=== PATIENT | female | born 1940 | race Caucasian/White ===

== ENCOUNTER 2017-09-15 10:07 | Outpatient (CLI) | payer OTHER, MEDICARE ==
[2017-09-15] MEDS ORDERED: ISOVUE-370 76%-LOCM 1 ML ONE (16:11)
== END 2017-09-15 10:08 | disposition home or self-care (01) ==
LOC: BICCT 10:07
PROVIDERS: ATTEND Family Medicine
DX: I48.1 Persistent atrial fibrillation (principal); J98.4 Other disorders of lung; J47.9 Bronchiectasis, uncomplicated; I70.90 Unspecified atherosclerosis
CPT/HCPCS: 71275

== ENCOUNTER 2017-09-15 11:47 | Outpatient (CLI) | payer OTHER, MEDICARE | END 2017-09-15 11:48 | disposition home or self-care (01) | LOC: BICMAMMO 11:47 | PROVIDERS: ATTEND Internal Medicine | DX: Z12.31 Encounter for screening mammogram for malignant neoplasm of breast (principal) | CPT/HCPCS: 77063; 77067 ==

== ENCOUNTER 2018-07-26 15:59 | Outpatient (CLI) | payer OTHER, MEDICARE ==
--- NOTE | 2018-07-26 17:45 | RAD ---
PA AND LATERAL CHEST: INDICATIONS: Chest and back pain after heart procedure. COMPARISON: CTA thorax dated 09/15/2017. FINDINGS: There is a metallic device overlying the upper left heart border, possibly related to an occlusion de vice from the atrial appendage. Heart size is mildly enlarged. The pulmonary vasculature appears wi thin normal limits. There are small bilateral pleural effusions and bibasilar atelectasis. No pneum othorax is demonstrated. No acute osseous abnormality is noted. There is an IVC filter present with in the upper abdomen. Cholecystectomy clips are seen within the right upper quadrant. IMPRESSION: 1. Suspected metallic occlusion device seen within the region of the left atrial appendage. 2. Mild cardiomegaly. 3. Small bilateral pleural effusion and bibasilar atelectasis. POS: [facility]
== END 2018-07-26 16:00 | disposition home or self-care (01) ==
LOC: BICRAD 15:59
PROVIDERS: ATTEND Internal Medicine
DX: R07.9 Chest pain, unspecified (principal); M54.5 Low back pain; I51.7 Cardiomegaly; J98.11 Atelectasis; J90 Pleural effusion, not elsewhere classified
CPT/HCPCS: 71046

== ENCOUNTER 2018-07-29 15:59 | Emergency (ER) | payer OTHER, MEDICARE ==
[~2018-07-29 15:59] MED LIST: ISOVUE-370 76%-LOCM 1 ML ONE
[2018-07-29 16:40] LABS: #Eosinphils 0.1 thou/uL (0.0-0.7); #Lymphocytes 1.7 thou/uL (1.20-3.40); #Monocytes 1.2 thou/uL (0.11-0.59); %Basophils 0.4 % (0.0-1.0); %Eosinophils 1.4 % (0.0-10.0); %Lymphocytes 21.3 % (21.0-51.0); %Monocytes 14.8 % (0.0-10.0); %Neutrophils 62.1 % (42.0-75.0); Hemoglobin 11.5 g/dL (12.0-16.0); Mean Corpuscular HGB CONC 31.8 g/dL (32.0-36.0); Mean Corpuscular Hemoglobin 30.4 pg (27.0-31.0); Mean Corpuscular Volume 95.7 fL (78.0-98.0); Mean Platelet Volume 8.4 fL (7.4-10.4); Platelet Count 256 thou/uL (130-400); RBC Distribution Width 11.4 % (11.5-14.5); Red Blood Cell (RBC) Count 3.77 mill/uL (4.20-5.40)
[2018-07-29 17:04] LABS: ALT (SGPT) 73 U/L (8-55); AST (SGOT) 61 U/L (5-34); Albumin 3.6 g/dL (3.4-4.8); Alkaline Phosphatase 330 U/L (40-150); Anion Gap 13 mmol/L (10-20); BUN (Urea Nitrogen) 20 mg/dL (9.8-20.1); Bilirubin, Total 0.2 mg/dL (0.2-1.2); Calc. Creatinine Clearance 0 mL/min (70-130); Calcium 9.2 mg/dL (7.8-10.44); Carbon Dioxide 26 mmol/L (23-31); Chloride 102 mmol/L (98-107); Estimated GFR-MDRD 65; Globulin 3.6 g/dL (2.4-3.5); Glucose 111 mg/dL (83-110); Potassium 3.8 mmol/L (3.5-5.1); Protein, Total 7.2 g/dL (6.0-8.3); Sodium 137 mmol/L (136-145)
--- NOTE | 2018-07-29 18:18 | RAD ---
TWO VIEW CHEST SERIES: 07/19/18 COMPARISON: 07/26/18 INDICATION: Emergency exam. Pain. FINDINGS: There is hyperinflation with bibasilar interstitial opacities that are similar appearing which indica tal scar. Mild pleural fluid versus pleural thickening present. There is enlargement of the cardiac s ilhouette and a stable radiopaque device indicating an atrial appendage occlusion device is seen. The re is ectasia and calcification of the thoracic aorta, stable. IMPRESSION: COPD. No significant interval change from 07/26/18. POS: [facility]
[2018-07-29] MEDS ORDERED: Morphine 4 MG/ML VIAL ONE (18:25)
[2018-07-29] MEDS ORDERED: Ondansetron PF 4 MG/2 ML Vial ONE (18:30)
[2018-07-29] MEDS ORDERED: Labetalol HCl 200 MG in Sodium Chloride 0.9% 250 ML 160 ML IVPB SCH (19:15)
[2018-07-29 19:28] LABS: INR-International Normal Ratio 1.2; Prothrombin Time 15.6 SEC (12.0-14.7)
[2018-07-29 19:29] LABS: PTT 44.7 SEC (22.9-36.1)
--- NOTE | 2018-07-29 19:41 | CT ---
CTA CHEST WITH CONTRAST: 07/29/18 Multiple axial tomograms obtained through the chest following angio protocol with multiplanar reconst ructions and 3D postprocessing. INDICATIONS: Chest pain and back pain. Recent atrial appendage occlusion procedure six days ago. Comparison is made with CTA chest 09/15/17. FINDINGS: Pulmonary arteries show adequate opacification. No evidence of pulmonary embolus. Review of the thoracic aorta reveals a thoracic aortic dissection involving the descending thoracic a bev. This is new when compared to prior CTA chest. False lumen extends throughout the thoracic aorta into the upper abdominal aorta. The true lumen shows normal opacification measuring approximately 1. 5 cm width x 2.4 cm AP dimension. False lumen has a similar size. There are small bilateral pleural effusions. The left lung base shows some parenchymal opacity which was similar to 2018 which would indicate chronic lung parenchymal changes. There is bronchiectasis in the left lung base which was also described in 2018. IMPRESSION: 1. 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 2. There is a filter device seen in the left atrial appendage consistent with the history. 3. Small bilateral effusions. 4. Dense opacification of the left lung base with bronchiectasis which has a similar appearance to the 2018 exam indicating chronic change. Findings were relayed to the emergency physician at the time of dictation. POS: [facility]
[2018-07-29] MEDS ORDERED: Fentanyl 100 MCG/2 ML VIAL ONE (20:19)
== END 2018-07-29 20:27 | disposition short-term general hospital (02) ==
LOC: ERS 15:59
DX: I71.01 Dissection of thoracic aorta (principal); I10 Essential (primary) hypertension; I48.91 Unspecified atrial fibrillation; Z86.718 Personal history of other venous thrombosis and embolism; E11.9 Type 2 diabetes mellitus without complications; Z79.82 Long term (current) use of aspirin; Z79.899 Other long term (current) drug therapy
CPT/HCPCS: 36415; 71046; 71275; 80053; 84484; 85025; 85379; 85610; 85730; 93005; 96365; 96375; 96376; J2270; J2405; J3010; J3490; J7050; Q9966

== ENCOUNTER 2019-01-18 15:49 | Outpatient (CLI) | payer OTHER, MEDICARE ==
--- NOTE | 2019-01-18 16:21 | RAD ---
EXAM: Chest Two Views 01/18/2019 4:17 PM HISTORY: Chest pain with left rib pain for the last 6 months; history of surgery in December and July COMPARISON: July 29, 2018 FINDINGS: Heart: The heart size is normal. The atrial appendage ablation device is unchanged. There is been int erval placement of a long segment endograft stent involving the aortic arch and descending thoracic aorta. IVC filter is seen within the upper abdomen. Pulmonary vessels: Normal. Costophrenic angles: Clear. Lungs: There is subsegmental volume loss within the left lower lobe. Pneumothorax: None. Osseous structures:Intact. Additional findings: None. IMPRESSION: No significant acute intrathoracic disease. Interval postsurgical change of the aorta. Subsegmental v olume loss within the left lower lobe.
--- NOTE | 2019-01-18 16:26 | RAD ---
LEFT RIB SERIES INDICATION: Left sided rib pain. COMPARISON: None. FINDINGS: The visualized left lung demonstrates subsegmental volume loss in the left lower lobe. No left-sided pneumothorax is demonstrated. Left Ribs: No displaced left-sided rib fracture is demonstrated. IMPRESSION: No displaced left-sided rib fracture
== END 2019-01-18 15:50 | disposition home or self-care (01) ==
LOC: BICRAD 15:49
PROVIDERS: ATTEND Internal Medicine
DX: R07.81 Pleurodynia (principal); R07.9 Chest pain, unspecified; Z98.890 Other specified postprocedural states; M54.5 Low back pain; I10 Essential (primary) hypertension; D64.9 Anemia, unspecified; Z79.899 Other long term (current) drug therapy
CPT/HCPCS: 36415; 71046; 80053; 85025

== ENCOUNTER 2019-02-15 13:47 | Outpatient (CLI) | payer OTHER, MEDICARE ==
--- NOTE | 2019-02-15 15:31 | CT ---
CT chest without and with IV contrast HISTORY: Chest pain. Prior aortic stent placement. COMPARISON: 07/29/2018. FINDINGS: Atelectasis at the left posterolateral lung base has improved since the previous exam. Pleu ral fluid has resolved. Calcified granulomata are consistent with healed granulomatous disease. Iliac stent now in place from the arch to the lower thoracic aorta with interval resolution of the la rge dissection demonstrated on the prior study. No evidence residual dissection. Minimal pericardial fluid. Bovine origin of the great vessels at the aortic arch. Prominent arterial calcific ations. Within the partially visualized upper abdomen, gallbladder is surgically absent with associated distention of the biliary system. IVC filter partially visualized. Tiny stone within at th e superior pole of the left kidney. IMPRESSION: Thoracic aortic stent now in place with interval resolution of the aortic dissection. No evidence of complication. Improvement of the subsegmental atelectasis left lower lobe. Atherosclerosis. Tiny left renal calculus.
== END 2019-02-15 13:48 | disposition home or self-care (01) ==
LOC: BICCT 13:47
PROVIDERS: ATTEND Internal Medicine
DX: R07.9 Chest pain, unspecified (principal); M54.9 Dorsalgia, unspecified; J98.11 Atelectasis; I70.90 Unspecified atherosclerosis; N20.0 Calculus of kidney
CPT/HCPCS: 71270

== ENCOUNTER 2019-07-26 10:26 | Outpatient (CLI) | payer MEDICARE ==
--- NOTE | 2019-07-26 13:09 | MRI ---
MRI CERVICAL SPINE WITHOUT CONTRAST: INDICATION: Cervical radiculopathy. Neck pain. FINDINGS: Cervical vertebrae maintain normal height and alignment. The cervical disk spaces are preserved. C2-3: No significant disk abnormality. C3-4: Mild disk bulge and spondylosis efface the anterior subarachnoid space. No significant cord i mpingement. Foramen appear patent. C4-5: Mild disk bulge and spondylosis efface the anterior subarachnoid space. No cord impingement. Foramen appear patent. C5-6: Mild disk bulge and spondylosis efface the anterior subarachnoid space and abut the anterior c ord. No significant foraminal stenosis apparent. C6-7: Mild disk bulge and spondylosis efface the anterior subarachnoid space. No significant cord i mpingement. No foraminal stenosis. Cord signal appears normally maintained. IMPRESSION: Mild disk bulge and spondylosis at C3-4, C4-5, and C5-6 levels as described. POS: [facility]
== END 2019-07-26 10:27 | disposition home or self-care (01) ==
LOC: BICMRI 10:26
PROVIDERS: ATTEND Anesthesiology Pain Medicine
DX: M47.22 Other spondylosis with radiculopathy, cervical region (principal); M50.11 Cervical disc disorder with radiculopathy, high cervical region
CPT/HCPCS: 72141

== ENCOUNTER 2020-05-16 09:54 | Outpatient (CLI) | payer MEDICARE ==
[~2020-05-16 09:54] MED LIST changes: -ISOVUE-370 76%-LOCM 1 ML ONE; +Iopamidol-370 76% 500 ML 1 ML ONE
--- NOTE | 2020-05-16 11:54 | CT ---
CT ANGIOGRAM THORAX WITH IV CONTRAST AND 3-D RECONSTRUCTIONS CLINICAL INDICATION: Atrial fibrillation and shortness of breath. Patient has history of placement of left atrial occlusio n device. COMPARISON: 02/15/2019 FINDINGS: Pulmonary arteries: No filling defects are seen in the pulmonary arteries to suggest a pulmonary embo rafy. Aorta and heart: Thoracic aortic stent graft remains in place. There is opacification of the great ve ssels, and the lumen of the stent graft is patent. The thoracic and visualized upper abdominal aorta are normal in caliber. Again noted is a left atrial occlusion device. There is persistent contrast seen within the left atri al appendage. Vascular calcifications are seen in the visualized upper abdominal aorta. Lungs: Wedge-shaped area of consolidation in the left lower lobe is again seen. The consolidation has improved compared to study on 07/29/2018 but is stable compared to study on 02/15/2019. No pleural fluid is seen. There is mild bronchiectasis in the region of the focal area of consolidation. There a re filling defects seen within the left lower lobe bronchi on the current exam which could be related to mucous plugging or debris. The lungs are otherwise clear. Mediastinum: No enlarged lymph nodes are seen by CT size criteria. The heart is mildly enlarged. Thyroid gland: There are subcentimeter nodules seen in left lobe of thyroid gland which are stable fr om prior studies. Osseous structures: Mild degenerative changes are seen in the spine. No suspicious lytic or sclerotic osseous lesions are identified. Chest wall: No abnormality visualized. Upper abdomen: Postcholecystectomy changes are present. Postoperative changes of the stomach are agai n noted. IMPRESSION: 1. Left atrial occlusion device is present. However, there is incomplete occlusion of the left atrial appendage with persistent enhancement present in the left atrial appendage. 2. Thoracic aortic stent graft is again present involving the descending thoracic aorta extending fro m the level of the origin of the left subclavian artery to the region of the aortic hiatus. Thoracic aorta is normal in caliber. 3. Persistent wedge-shaped area of consolidation left lower lobe. This is likely related to chronic a liberty of atelectasis as there is generalized volume loss of the left lower lobe. Filling defects are seen within the left lower lobe bronchi which could be related to debris or mucous plugging. 4. Mild cardiomegaly. 5. Hypodense nodules left lobe of thyroid gland also seen on prior exam. Thyroid ultrasound may be he lpful for further evaluation if this has not been performed. 6. Postcholecystectomy changes as well as postoperative changes of the stomach.
== END 2020-05-16 09:55 | disposition home or self-care (01) ==
LOC: BICCT 09:54
PROVIDERS: ATTEND Internal Medicine Cardiovascular Disease
DX: I48.91 Unspecified atrial fibrillation (principal); R06.02 Shortness of breath; I51.7 Cardiomegaly; E04.2 Nontoxic multinodular goiter; J18.1 Lobar pneumonia, unspecified organism; Z90.49 Acquired absence of other specified parts of digestive tract; Z95.828 Presence of other vascular implants and grafts
CPT/HCPCS: 71275; 82565; Q9967

== ENCOUNTER 2020-08-20 13:23 | Observation (INO) | payer MEDICARE ==
[2020-08-20] MEDS ORDERED: Iopamidol-370 76% 500 ML 1 ML ONE (14:14)
[2020-08-20 14:23] LABS: #Eosinphils 0.1 thou/uL (0.0-0.7); #Lymphocytes 1.4 thou/uL (1.20-3.40); #Monocytes 0.7 thou/uL (0.11-0.59); #Neutrophils 7.1 thou/uL (1.40-6.50); %Basophils 0.5 % (0.0-1.0); %Eosinophils 1.1 % (0.0-10.0); %Lymphocytes 14.9 % (21.0-51.0); %Monocytes 7.4 % (0.0-10.0); %Neutrophils 76.1 % (42.0-75.0); Hemoglobin 11.2 g/dL (12.0-16.0); Mean Corpuscular HGB CONC 31.7 g/dL (32.0-36.0); Mean Corpuscular Hemoglobin 28.5 pg (27.0-31.0); Mean Corpuscular Volume 89.8 fL (78.0-98.0); Mean Platelet Volume 8.5 fL (7.4-10.4); Platelet Count 267 thou/uL (130-400); RBC Distribution Width 13.4 % (11.5-14.5); Red Blood Cell (RBC) Count 3.92 mill/uL (4.20-5.40); White Blood Cell (WBC) Count 9.3 thou/uL (4.8-10.8)
[2020-08-20 14:37] LABS: ALT (SGPT) 55 U/L (8-55); AST (SGOT) 165 U/L (5-34); Albumin 3.7 g/dL (3.4-4.8); Alkaline Phosphatase 208 U/L (40-110); Anion Gap 14 mmol/L (10-20); BUN (Urea Nitrogen) 32 mg/dL (9.8-20.1); Bilirubin, Total 0.3 mg/dL (0.2-1.2); Calc. Creatinine Clearance 0 mL/min (70-130); Carbon Dioxide 24 mmol/L (23-31); Chloride 104 mmol/L (98-107); Globulin 3.3 g/dL (2.4-3.5); Glucose 120 mg/dL (83-110); Lipase 27 U/L (8-78); Potassium 4.6 mmol/L (3.5-5.1); Sodium 137 mmol/L (136-145)
[2020-08-20] MEDS ORDERED: Nitroglycerin 0.4 MG TAB (25 Tab Bottle) SL PRN (17:47)
[2020-08-20] MEDS ORDERED: Dextrose 50% Abboject 50 ML SYRINGE SLOW IVP PRN (17:47)
[2020-08-20] MEDS ORDERED: Acetaminophen 325 MG TAB PO PRN (17:47)
[2020-08-20] MEDS ORDERED: Dextrose 5% in Water 1,000 ML IV PRN (17:47)
[2020-08-20] MEDS ORDERED: HumaLOG 300 UNITS/3 ML VIAL SC PRN ×2 (18:01)
[2020-08-20 18:29] LABS: Troponin I Less than 0.010 ng/mL (< 0.028)
[2020-08-20 20:48] LABS: Troponin I Less than 0.010 ng/mL (< 0.028)
[2020-08-21] MEDS ORDERED: Mag-Al Plus 1200 MG/1200 MG/120 MG/30 ML UDCUP PO SCH (01:00)
[2020-08-21] MEDS ORDERED: Acetaminophen 500 MG TAB ONE (01:02)
[2020-08-21] MEDS: hydrALAZINE 20 MG/ML VIAL SLOW IVP PRN ×2 (01:28→18:51)
[2020-08-21] MEDS ORDERED: hydrALAZINE 20 MG/ML VIAL ONE (01:30)
[2020-08-21] MEDS ORDERED: Nitroglycerin 0.4 MG TAB 1 EACH ONE (02:58)
[2020-08-21 03:51] LABS: Troponin I Less than 0.010 ng/mL (< 0.028)
[2020-08-21 04:20] LABS: SARS-CoV-2 PCR by NAA Not Detected (NotDetected)
[2020-08-21 06:37] LABS: #Basophils 0.1 thou/uL (0.0-0.2); #Lymphocytes 1.3 thou/uL (1.20-3.40); #Monocytes 0.5 thou/uL (0.11-0.59); #Neutrophils 6.1 thou/uL (1.40-6.50); %Basophils 0.7 % (0.0-1.0); %Eosinophils 0.4 % (0.0-10.0); %Lymphocytes 15.9 % (21.0-51.0); %Monocytes 5.9 % (0.0-10.0); %Neutrophils 77.2 % (42.0-75.0); Mean Corpuscular HGB CONC 30.8 g/dL (32.0-36.0); Mean Corpuscular Hemoglobin 27.9 pg (27.0-31.0); Mean Corpuscular Volume 90.6 fL (78.0-98.0); Mean Platelet Volume 8.2 fL (7.4-10.4); Platelet Count 261 thou/uL (130-400); RBC Distribution Width 13.5 % (11.5-14.5); Red Blood Cell (RBC) Count 3.94 mill/uL (4.20-5.40)
[2020-08-21 06:53] LABS: Anion Gap 17 mmol/L (10-20); BUN (Urea Nitrogen) 23 mg/dL (9.8-20.1); Calc. Creatinine Clearance 0 mL/min (70-130); Calcium 8.5 mg/dL (7.8-10.44); Carbon Dioxide 21 mmol/L (23-31); Chloride 103 mmol/L (98-107); Glucose 138 mg/dL (83-110); Potassium 4.1 mmol/L (3.5-5.1); Sodium 137 mmol/L (136-145)
[2020-08-21] MEDS ORDERED: FLU VACC QS2020-21(65YR UP)/PF 240 MCG/0.7 ML SYRINGE IM ONE (08:45)
[2020-08-21] MEDS ORDERED: traMADol HCl 50 MG TAB PO PRN (11:22)
[2020-08-21] MEDS ORDERED: Flecainide 50 MG TAB PO SCH (12:45)
[2020-08-21] MEDS ORDERED: Pantoprazole 40 MG VIAL IVP SCH (12:45)
[2020-08-21] MEDS ORDERED: NIFEdipine XL 30 MG TAB PO SCH (12:45)
[2020-08-21] MEDS ORDERED: Aspirin 81 mg Enteric Coated Tablet PO SCH (12:45)
[2020-08-21] MEDS: Mag-Al 1200 mg/1200 mg/30 ML UDCUP PO PRN ×2 (13:34→21:48)
[2020-08-21] MEDS ORDERED: ADENOSINE 60 MG/20 ML VIAL ONE (14:01)
[2020-08-21 17:27] VITALS: BMI 27.1
[2020-08-21] MEDS ORDERED: DORZOLAMIDE OP SCH (21:00)
[2020-08-21] MEDS ORDERED: Latanoprost 0.005% Ophth Soln 2.5 ml Bottle EA EYE SCH (21:00)
[2020-08-21] MEDS ORDERED: [UNRECOGNIZED DRUG - OTHER] OP SCH (21:00)
[2020-08-21] MEDS ORDERED: Rosuvastatin 10 MG TAB PO SCH (21:00)
[2020-08-21] MEDS ORDERED: TIMOLOL OP SCH (21:00)
[2020-08-21] MEDS: Flecainide 50 MG TAB PO SCH (21:39)
[2020-08-21] MEDS: DorzolamidE/Timolol 2%/0.5% Ophth Soln 10 ml Bottle EA EYE SCH (21:44)
[2020-08-22 06:17] LABS: ALT (SGPT) 50 U/L (8-55); AST (SGOT) 39 U/L (5-34); Albumin 3.4 g/dL (3.4-4.8); Alkaline Phosphatase 178 U/L (40-110); Anion Gap 11 mmol/L (10-20); BUN (Urea Nitrogen) 16 mg/dL (9.8-20.1); Bilirubin, Total 0.3 mg/dL (0.2-1.2); Calc. Creatinine Clearance 47 mL/min (70-130); Calcium 8.4 mg/dL (7.8-10.44); Carbon Dioxide 27 mmol/L (23-31); Chloride 103 mmol/L (98-107); Globulin 3.3 g/dL (2.4-3.5); Glucose 117 mg/dL (83-110); Iron 30 ug/dL (50-170); Iron Binding Capacity, Total 369 mcg/dL (265-497); Potassium 3.9 mmol/L (3.5-5.1); Protein, Total 6.7 g/dL (5.8-8.1); Sodium 137 mmol/L (136-145)
[2020-08-22 06:34] LABS: Ferritin 21.37 ng/mL (10-291)
[2020-08-22 06:48] LABS: HBSAg Index 0.21 S/CO (0-0.99); Hep A IgM AB Non-Reactive (NonReactive); Hep B Surf Ag Non-Reactive S/CO (NonReactive); Hep C IgG Ab Non-Reactive (NonReactive); Hep C Index 0.05 S/CO (0-0.79); Hepatitis B Core IgM Abs Non-Reactive (NonReactive)
[2020-08-22] MEDS ORDERED: Aspirin 81 mg Enteric Coated Tablet PO SCH (09:00)
[2020-08-22] MEDS ORDERED: Pantoprazole 40 MG VIAL IVP SCH (09:00)
[2020-08-22] MEDS ORDERED: NIFEdipine XL 30 MG TAB PO SCH (09:00)
[2020-08-22] MEDS: Flecainide 50 MG TAB PO SCH (09:09)
[2020-08-22] MEDS: DorzolamidE/Timolol 2%/0.5% Ophth Soln 10 ml Bottle EA EYE SCH (09:11)
[2020-08-22] MEDS ORDERED: PROPOFOL 200 MG/20 ML VIAL ONE (11:16)
[2020-08-22] MEDS ORDERED: Lidocaine 1% PF 5 ML VIAL ONE (11:16)
[2020-08-22] MEDS ORDERED: Ondansetron HCl/PF 4 MG/2 ML Vial IVP PRN (11:46)
[2020-08-22 17:10] VITALS: BP 129/60; TEMP 98.2
== END 2020-08-22 19:03 | disposition home or self-care (01) ==
LOC: ERS 13:23 → ERHOLD 16:13 → 2SW 08-21 12:18
PROVIDERS: ADMIT Internal Medicine; ATTEND Internal Medicine
PROC: 0DJ08ZZ Inspection of Upper Intestinal Tract, Via Natural or Artificial Opening Endoscopic (ICD-10-PCS; principal; 2020-08-22)
DX: K25.9 Gastric ulcer, unspecified as acute or chronic, without hemorrhage or perforation (principal); E78.5 Hyperlipidemia, unspecified; I48.91 Unspecified atrial fibrillation; I12.9 Hypertensive chronic kidney disease with stage 1 through stage 4 chronic kidney disease, or unspecified chronic kidney disease; E11.22 Type 2 diabetes mellitus with diabetic chronic kidney disease; N18.30 Chronic kidney disease, stage 3 unspecified; R94.5 Abnormal results of liver function studies; J98.11 Atelectasis; Z86.73 Personal history of transient ischemic attack (TIA), and cerebral infarction without residual deficits; Z79.82 Long term (current) use of aspirin; Z79.899 Other long term (current) drug therapy; Z95.5 Presence of coronary angioplasty implant and graft; Z95.818 Presence of other cardiac implants and grafts; Z98.84 Bariatric surgery status; Z20.822 Contact with and (suspected) exposure to COVID-19
CPT/HCPCS: 43235; 71045; 71275; 74174; 76705; 78452; 80048; 80053 ×2; 80074; 82728; 82962 ×2; 83540; 83550; 83690; 84484 ×3; 85025 ×2; 93005 ×2; 93017; 94760; 99285; A9500; U0003; U0005; 36415; 36416; 87635; 96374; 96375; 96376; C9113; G0378; J0153; J0360; J2704; Q9967

== ENCOUNTER 2021-05-10 13:46 | Emergency (ER) | payer MEDICARE ==
[2021-05-10 14:32] LABS: #Eosinphils 0.1 thou/uL (0.0-0.7); #Lymphocytes 1.4 thou/uL (1.20-3.40); #Neutrophils 5.2 thou/uL (1.40-6.50); %Basophils 0.5 % (0.0-1.0); %Eosinophils 1.6 % (0.0-10.0); %Monocytes 12.4 % (0.0-10.0); %Neutrophils 67.5 % (42.0-75.0); Hemoglobin 7.9 g/dL (12.0-16.0); Mean Corpuscular HGB CONC 30.4 g/dL (32.0-36.0); Mean Corpuscular Hemoglobin 22.2 pg (27.0-31.0); Mean Corpuscular Volume 73.1 fL (78.0-98.0); Mean Platelet Volume 8.6 fL (7.4-10.4); Platelet Count 342 thou/uL (130-400); RBC Distribution Width 17.7 % (11.5-14.5); Red Blood Cell (RBC) Count 3.55 mill/uL (4.20-5.40); White Blood Cell (WBC) Count 7.7 thou/uL (4.8-10.8)
[2021-05-10 14:49] LABS: ALT (SGPT) 22 U/L (8-55); AST (SGOT) 17 U/L (5-34); Albumin 3.7 g/dL (3.4-4.8); Alkaline Phosphatase 127 U/L (40-110); Anion Gap 14 mmol/L (10-20); BUN (Urea Nitrogen) 21 mg/dL (9.8-20.1); Bilirubin, Total 0.4 mg/dL (0.2-1.2); Calc. Creatinine Clearance 0 mL/min (70-130); Calcium 8.9 mg/dL (7.8-10.44); Carbon Dioxide 23 mmol/L (23-31); Chloride 106 mmol/L (98-107); Globulin 3.8 g/dL (2.4-3.5); Glucose 155 mg/dL (83-110); Potassium 3.2 mmol/L (3.5-5.1); Protein, Total 7.5 g/dL (5.8-8.1); Sodium 140 mmol/L (136-145)
[2021-05-10 17:58] LABS: Bilirubin Negative (Negative); Blood, Urine Negative (Negative); Clarity Clear (Clear); Glucose, Urine (Dipstick) Normal (Negative); Ketone, Urine Negative (Negative); Leukocyte 75 Leu/uL (Negative); Nitrite Negative (Negative); Protein, Urine (Dipstick) 30 mg/dL (Neg-Trace); RBC/HPF 0-3 HPF (0-3); Specific Gravity, Urine 1.023 (1.002-1.036); Squamous Epithelial 0-3 HPF (0-3); Urobilinogen Normal mg/dL (Less than 2); pH, Urine 5.5 (5.0-9.0)
[2021-05-10 18:02] LABS: Bacteria/HPF 1+ HPF (None Seen)
[2021-05-10] MEDS ORDERED: Potassium Chloride 20 MEQ TAB ONE (18:59)
== END 2021-05-10 22:49 | disposition home or self-care (01) ==
LOC: ERS 13:46
DX: D64.9 Anemia, unspecified (principal); E87.6 Hypokalemia; N39.0 Urinary tract infection, site not specified; I48.91 Unspecified atrial fibrillation; I10 Essential (primary) hypertension; E11.9 Type 2 diabetes mellitus without complications; Z86.73 Personal history of transient ischemic attack (TIA), and cerebral infarction without residual deficits; Z79.899 Other long term (current) drug therapy
CPT/HCPCS: 36430; 80053; 84484; 85025; 86850; 86900; 86901; 86920; 87086; 93005; 99285; P9016; 36415; 81003; 81015; 82274

== ENCOUNTER 2022-01-21 10:34 | Outpatient (CLI) | payer MEDICARE | END 2022-01-21 10:35 | disposition home or self-care (01) | LOC: BICULT 10:34 | PROVIDERS: ATTEND Internal Medicine | DX: R09.89 Other specified symptoms and signs involving the circulatory and respiratory systems (principal) | CPT/HCPCS: 93880 ==

== ENCOUNTER 2022-03-31 07:47 | Outpatient (CLI) | payer MEDICARE ==
[2022-03-31] MEDS ORDERED: Iopamidol-370 76% 500 ML 1 ML ONE (14:12)
== END 2022-03-31 07:48 | disposition home or self-care (01) ==
LOC: BICCT 07:47
PROVIDERS: ATTEND Internal Medicine
DX: K63.89 Other specified diseases of intestine (principal); K76.9 Liver disease, unspecified
CPT/HCPCS: 74177; Q9967

== ENCOUNTER 2022-04-22 08:45 | Outpatient (CLI) | payer MEDICARE | END 2022-04-22 08:46 | disposition home or self-care (01) | LOC: PET 08:45 | PROVIDERS: ATTEND Internal Medicine Hematology & Oncology | DX: C18.2 Malignant neoplasm of ascending colon (principal); R91.1 Solitary pulmonary nodule | CPT/HCPCS: 78815; A9552 ==

== ENCOUNTER 2022-05-05 07:58 | Day surgery (SDC) | payer MEDICARE ==
[~2022-05-05 07:58] MED LIST changes: +FLU VACC QS2022-23(65YR UP)/PF 240 MCG/0.7 ML SYRINGE IM ONE; -Iopamidol-370 76% 500 ML 1 ML ONE
[2022-05-05 08:08] LABS: #Eosinphils 0.1 thou/uL (0.0-0.7); #Lymphocytes 1.5 thou/uL (1.20-3.40); #Monocytes 0.5 thou/uL (0.11-0.59); %Basophils 0.7 % (0.0-1.0); %Eosinophils 1.4 % (0.0-10.0); %Lymphocytes 20.4 % (21.0-51.0); %Monocytes 7.4 % (0.0-10.0); %Neutrophils 70.1 % (42.0-75.0); Hemoglobin 13.4 g/dL (12.0-16.0); Mean Corpuscular HGB CONC 32.6 g/dL (32.0-36.0); Mean Corpuscular Hemoglobin 32.3 pg (27.0-31.0); Mean Corpuscular Volume 99.2 fl (78.0-98.0); Mean Platelet Volume 8.5 fL (7.4-10.4); Platelet Count 210 10x3/uL (130-400); RBC Distribution Width 13.6 % (11.5-14.5); Red Blood Cell (RBC) Count 4.14 mill/uL (4.20-5.40); White Blood Cell (WBC) Count 7.1 10x3/uL (4.8-10.8)
[2022-05-05 08:26] LABS: INR-International Normal Ratio 1.1; PTT 32.9 sec (22.9-36.1); Prothrombin Time 14.8 sec (12.0-14.7)
[2022-05-05 09:09] VITALS: BP 201/79; TEMP 98; BMI 27.3
== END 2022-05-05 10:00 | disposition home or self-care (01) ==
LOC: CT 07:58
PROVIDERS: ATTEND Internal Medicine Hematology & Oncology
DX: C18.2 Malignant neoplasm of ascending colon (principal); R94.5 Abnormal results of liver function studies; I10 Essential (primary) hypertension; Z53.09 Procedure and treatment not carried out because of other contraindication; Z79.899 Other long term (current) drug therapy
CPT/HCPCS: 85025; 85610; 85730

== ENCOUNTER 2022-05-14 08:58 | Day surgery (SDC) | payer MEDICARE ==
[2022-05-13 14:39] VITALS: BMI 27.3
== END 2022-05-14 11:04 | disposition home or self-care (01) ==
LOC: CT 08:58
PROVIDERS: ATTEND Internal Medicine Hematology & Oncology
DX: C18.2 Malignant neoplasm of ascending colon (principal); D50.8 Other iron deficiency anemias; N18.9 Chronic kidney disease, unspecified; D63.1 Anemia in chronic kidney disease; I48.91 Unspecified atrial fibrillation; K21.9 Gastro-esophageal reflux disease without esophagitis; Z53.8 Procedure and treatment not carried out for other reasons; Z87.11 Personal history of peptic ulcer disease; Z79.899 Other long term (current) drug therapy
CPT/HCPCS: J2250; J3010

== ENCOUNTER 2022-08-22 10:15 | Outpatient (CLI) | payer MEDICARE | END 2022-08-22 10:16 | LOC: PET 10:15 | PROVIDERS: ATTEND Internal Medicine Hematology & Oncology | DX: C18.2 Malignant neoplasm of ascending colon (principal) | CPT/HCPCS: 78815; A9552 ==

== ENCOUNTER 2022-09-09 09:09 | Outpatient (CLI) | payer MEDICARE | END 2022-09-09 09:10 | disposition home or self-care (01) | LOC: TBSIIMAG 09:09 | PROVIDERS: ATTEND Internal Medicine Hematology & Oncology | DX: C18.2 Malignant neoplasm of ascending colon (principal); C79.51 Secondary malignant neoplasm of bone; N18.9 Chronic kidney disease, unspecified; D50.8 Other iron deficiency anemias; D63.1 Anemia in chronic kidney disease; G95.19 Other vascular myelopathies | CPT/HCPCS: 72157 ==

== ENCOUNTER 2022-10-03 14:02 | Outpatient (CLI) | payer MEDICARE | END 2022-10-03 14:03 | disposition home or self-care (01) | LOC: SCSMRI 14:02 | PROVIDERS: ATTEND Anesthesiology Pain Medicine | DX: S32.000A Wedge compression fracture of unspecified lumbar vertebra, initial encounter for closed fracture (principal); M47.815 Spondylosis without myelopathy or radiculopathy, thoracolumbar region; M47.816 Spondylosis without myelopathy or radiculopathy, lumbar region; M47.817 Spondylosis without myelopathy or radiculopathy, lumbosacral region; M25.78 Osteophyte, vertebrae; M51.36 Other intervertebral disc degeneration, lumbar region; M51.37 Other intervertebral disc degeneration, lumbosacral region; M48.07 Spinal stenosis, lumbosacral region | CPT/HCPCS: 72148 ==

== ENCOUNTER 2022-11-13 15:45 | Outpatient (CLI) | payer MEDICARE ==
[2022-11-13 16:42] LABS: #Eosinphils 0.1 10x3/uL (0.0-0.5); #Monocytes 0.5 10x3/uL (0.0-1.1); %Basophils 0.6 % (0.0-2.0); %Lymphocytes 31.7 % (18.0-47.0); %Monocytes 8.8 % (0.0-10.0); %Neutrophils 57.7 % (40.0-75.0); Hemoglobin 12.8 g/dL (12.0-15.5); Mean Corpuscular HGB CONC 31.7 g/dL (32.0-36.0); Mean Corpuscular Hemoglobin 32.7 pg (27.0-33.0); Mean Corpuscular Volume 103.3 fl (81.6-98.3); Mean Platelet Volume 11.8 fl (7.4-10.4); Platelet Count 229 10x3/uL (150-450); RBC Distribution Width 12.6 % (11.5-14.5); Red Blood Cell (RBC) Count 3.91 10x6/uL (3.90-5.03); White Blood Cell (WBC) Count 5.2 10x3/uL (3.5-10.5)
[2022-11-13 16:54] LABS: Anion Gap 16 mmol/L (10-20); BUN (Urea Nitrogen) 20 mg/dL (9.8-20.1); Calc. Creatinine Clearance 0 mL/min (70-130); Calcium 9.3 mg/dL (7.8-10.44); Carbon Dioxide 24 mmol/L (23-31); Chloride 104 mmol/L (98-107); Estimated GFR 45; Glucose 106 mg/dL (83-110); Potassium 4.6 mmol/L (3.5-5.1); Sodium 139 mmol/L (136-145)
[2022-11-13 20:23] LABS: Hemoglobin A1c 5.3 % (4.0-6.0)
== END 2022-11-13 15:46 | disposition home or self-care (01) ==
LOC: LABBT 15:45
PROVIDERS: ATTEND Specialist
DX: Z01.812 Encounter for preprocedural laboratory examination (principal); C18.9 Malignant neoplasm of colon, unspecified
CPT/HCPCS: 71046; 80048; 83036; 85025; 93005; 93010

== ENCOUNTER 2023-01-26 18:48 | Inpatient (IN) | payer MEDICARE ==
[2023-01-26 19:55] LABS: #Neutrophils 1.6 thou/uL (1.40-6.50); %Basophils 0.5 % (0.0-1.0); %Lymphocytes 19.1 % (21.0-51.0); %Neutrophils 78.9 % (42.0-75.0); Hematocrit 40.5 % (36.0-47.0); Mean Corpuscular HGB CONC 32.1 g/dL (32.0-36.0); Mean Corpuscular Hemoglobin 32.2 pg (27.0-31.0); Mean Corpuscular Volume 100.2 fl (78.0-98.0); Mean Platelet Volume 10.9 fL (7.4-10.4); Platelet Count 205 10x3/uL (130-400); RBC Distribution Width 13.4 % (11.5-14.5); Red Blood Cell (RBC) Count 4.04 mill/uL (4.20-5.40)
[2023-01-26] MEDS ORDERED: dilTIAZem 125 MG/25 ML SDV ONE (20:04)
[2023-01-26 20:22] LABS: ALT (SGPT) 10 U/L (8-55); AST (SGOT) 16 U/L (5-34); Albumin 4.2 g/dL (3.4-4.8); Alkaline Phosphatase 123 U/L (40-110); Anion Gap 14 mmol/L (10-20); BUN (Urea Nitrogen) 20 mg/dL (9.8-20.1); Bilirubin, Total 0.3 mg/dL (0.2-1.2); Calc. Creatinine Clearance 0 mL/min (70-130); Calcium 9.6 mg/dL (7.8-10.44); Carbon Dioxide 24 mmol/L (23-31); Chloride 105 mmol/L (98-107); Estimated GFR 43; Globulin 3.5 g/dL (2.4-3.5); Glucose 262 mg/dL (83-110); Potassium 3.6 mmol/L (3.5-5.1); Protein, Total 7.7 g/dL (5.8-8.1); Sodium 139 mmol/L (136-145)
[2023-01-26 20:23] LABS: Troponin I Less than 0.010 ng/mL (< 0.028)
[2023-01-26] MEDS ORDERED: Acetaminophen 325 MG TAB PO PRN (23:30)
[2023-01-26] MEDS ORDERED: dilTIAZem 125 MG in Sodium Chloride 0.9% 100 ML IVPB SCH (23:30)
[2023-01-26] MEDS ORDERED: Ondansetron PF 4 MG/2 ML Vial IVP PRN (23:30)
[2023-01-26] MEDS ORDERED: Ondansetron ODT 4 MG TAB SL PRN (23:30)
[2023-01-26] MEDS ORDERED: Sodium Chloride 0.9% 1,000 ML IV SCH (23:30)
[2023-01-26 23:38] VITALS: BMI 24.4
[2023-01-27] MEDS ORDERED: Acetaminophen 650 MG Suppository PR PRN (02:28)
[2023-01-27] MEDS ORDERED: Dextrose 5% in Water 1,000 ML IV PRN (02:37)
[2023-01-27] MEDS ORDERED: Glucagon 1 MG/ML KIT IM PRN (02:37)
[2023-01-27] MEDS ORDERED: HumaLOG 300 UNITS/3 ML VIAL SC PRN ×2 (02:37)
[2023-01-27] MEDS ORDERED: Dextrose 50% Abboject 50 ML SYRINGE SLOW IVP PRN (02:37)
[2023-01-27] MEDS ORDERED: traMADol HCl 50 MG TAB ONE (03:55)
[2023-01-27] MEDS: traMADol HCl 50 MG TAB PO PRN ×2 (03:58→15:41)
[2023-01-27 06:03] LABS: #Monocytes 0.2 thou/uL (0.11-0.59); #Neutrophils 3.6 thou/uL (1.40-6.50); %Basophils 0.2 % (0.0-1.0); %Lymphocytes 14.3 % (21.0-51.0); %Monocytes 3.6 % (0.0-10.0); %Neutrophils 81.5 % (42.0-75.0); Hematocrit 32.2 % (36.0-47.0); Hemoglobin 10.6 g/dL (12.0-16.0); Mean Corpuscular HGB CONC 32.9 g/dL (32.0-36.0); Mean Corpuscular Hemoglobin 33.1 pg (27.0-31.0); Mean Corpuscular Volume 100.6 fl (78.0-98.0); Mean Platelet Volume 10.7 fL (7.4-10.4); Platelet Count 177 10x3/uL (130-400); RBC Distribution Width 13.3 % (11.5-14.5); White Blood Cell (WBC) Count 4.5 10x3/uL (4.8-10.8)
[2023-01-27 06:32] LABS: Anion Gap 11 mmol/L (10-20); BUN (Urea Nitrogen) 19 mg/dL (9.8-20.1); Calc. Creatinine Clearance 43 mL/min (70-130); Calcium 8.5 mg/dL (7.8-10.44); Carbon Dioxide 23 mmol/L (23-31); Chloride 111 mmol/L (98-107); Estimated GFR 64; Glucose 174 mg/dL (83-110); Potassium 3.4 mmol/L (3.5-5.1); Sodium 142 mmol/L (136-145)
[2023-01-27] MEDS ORDERED: Amiodarone 200 MG TAB PO SCH (09:24)
[2023-01-27] MEDS ORDERED: Famotidine 20 MG TAB PO SCH (13:00)
[2023-01-27] MEDS ORDERED: dilTIAZem 30 MG TAB PO SCH ×3 (15:00→15:15)
[2023-01-27] MEDS: Amiodarone 200 MG TAB PO SCH (20:53)
[2023-01-27] MEDS: dilTIAZem 30 MG TAB PO SCH (20:54)
[2023-01-27] MEDS: DorzolamidE/Timolol 2%/0.5% Ophth Soln 10 ml Bottle EA EYE SCH (20:55)
[2023-01-27] MEDS ORDERED: Rosuvastatin 10 MG TAB PO SCH (21:00)
[2023-01-27] MEDS ORDERED: Latanoprost 0.005% Ophth Soln 2.5 ml Bottle EA EYE SCH (21:00)
[2023-01-28] MEDS ORDERED: Amiodarone 200 MG TAB PO SCH (09:00)
[2023-01-28] MEDS ORDERED: Famotidine 20 MG TAB PO SCH (09:00)
[2023-01-28] MEDS: DorzolamidE/Timolol 2%/0.5% Ophth Soln 10 ml Bottle EA EYE SCH (09:15)
[2023-01-28] MEDS: Amiodarone 200 MG TAB PO SCH (09:15)
[2023-01-28] MEDS: dilTIAZem 30 MG TAB PO SCH (09:18)
[2023-01-28 10:24] LABS: Anion Gap 13 mmol/L (10-20); BUN (Urea Nitrogen) 18 mg/dL (9.8-20.1); Calc. Creatinine Clearance 44 mL/min (70-130); Calcium 8.5 mg/dL (7.8-10.44); Carbon Dioxide 24 mmol/L (23-31); Chloride 107 mmol/L (98-107); Estimated GFR 67; Glucose 124 mg/dL (83-110); Magnesium 1.7 mg/dL (1.6-2.6); Potassium 3.7 mmol/L (3.5-5.1); Sodium 140 mmol/L (136-145)
[2023-01-28 13:21] VITALS: BP 146/72; TEMP 98.1
== END 2023-01-28 15:11 | disposition home or self-care (01) | DRG 309 ==
LOC: ERS 18:48 → ERHOLD 21:28 → 2NO 23:05 → OBSVTOIN 01-28 12:08
PROVIDERS: ADMIT Student in an Organized Health Care Education/Training Program; ATTEND Family Medicine
DX: I48.0 Paroxysmal atrial fibrillation (principal); C18.9 Malignant neoplasm of colon, unspecified; E11.9 Type 2 diabetes mellitus without complications; I10 Essential (primary) hypertension; Z86.73 Personal history of transient ischemic attack (TIA), and cerebral infarction without residual deficits; Z90.49 Acquired absence of other specified parts of digestive tract; Z88.8 Allergy status to other drugs, medicaments and biological substances; Z79.899 Other long term (current) drug therapy; Z98.49 Cataract extraction status, unspecified eye; Z86.718 Personal history of other venous thrombosis and embolism; Z98.890 Other specified postprocedural states
CPT/HCPCS: 36415; 36416; 71045; 80048; 80053; 83735; 84484; 85025; 93005; 96365; 96366; G0378; J1642; J1815; J7050

== ENCOUNTER 2023-02-07 11:37 | Inpatient (IN) | payer MEDICARE ==
[~2023-02-07 11:37] MED LIST changes: -FLU VACC QS2022-23(65YR UP)/PF 240 MCG/0.7 ML SYRINGE IM ONE; +Iopamidol-370 76% 500 ML MDV (1 ML CHARGE) ONE
[2023-02-07 12:18] LABS: #Monocytes 0.6 thou/uL (0.11-0.59); #Neutrophils 4.4 thou/uL (1.40-6.50); %Basophils 0.5 % (0.0-1.0); %Eosinophils 0.5 % (0.0-10.0); %Lymphocytes 22.1 % (21.0-51.0); %Monocytes 9.6 % (0.0-10.0); Hematocrit 35.3 % (36.0-47.0); Hemoglobin 11.2 g/dL (12.0-16.0); Mean Corpuscular HGB CONC 31.7 g/dL (32.0-36.0); Mean Corpuscular Volume 104.1 fl (78.0-98.0); Mean Platelet Volume 10.8 fL (7.4-10.4); Platelet Count 240 10x3/uL (130-400); RBC Distribution Width 13.2 % (11.5-14.5); Red Blood Cell (RBC) Count 3.39 mill/uL (4.20-5.40); White Blood Cell (WBC) Count 6.6 10x3/uL (4.8-10.8)
[2023-02-07] MEDS ORDERED: dilTIAZem 125 MG/25 ML SDV ONE ×2 (12:21→15:36)
[2023-02-07] MEDS ORDERED: Furosemide 40 MG/4 ML VIAL ONE (12:21)
[2023-02-07] MEDS ORDERED: dilTIAZem 25 MG/5 ML VIAL ONE ×2 (12:23→15:17)
[2023-02-07 12:40] LABS: ALT (SGPT) 12 U/L (8-55); AST (SGOT) 24 U/L (5-34); Albumin 3.9 g/dL (3.4-4.8); Alkaline Phosphatase 94 U/L (40-110); Anion Gap 16 mmol/L (10-20); BUN (Urea Nitrogen) 21 mg/dL (9.8-20.1); Bilirubin, Total 0.3 mg/dL (0.2-1.2); Calc. Creatinine Clearance 0 mL/min (70-130); Calcium 8.8 mg/dL (7.8-10.44); Carbon Dioxide 21 mmol/L (23-31); Chloride 108 mmol/L (98-107); Estimated GFR 57; Glucose 111 mg/dL (83-110); Lipase 10 U/L (8-78); Potassium 3.8 mmol/L (3.5-5.1); Protein, Total 6.9 g/dL (5.8-8.1); Sodium 141 mmol/L (136-145)
[2023-02-07 12:43] LABS: Troponin I Less than 0.010 ng/mL (< 0.028)
[2023-02-07 13:02] LABS: Bilirubin Negative (Negative); Blood, Urine Negative (Negative); CAUTI Indications for Culture Pelvic or flank pain; Clarity Clear (Clear); Glucose, Urine (Dipstick) Normal (Negative); Ketone, Urine Negative (Negative); Leukocyte 75 Leu/uL (Negative); Nitrite Negative (Negative); Protein, Urine (Dipstick) Negative (Neg-Trace); RBC/HPF 0-3 HPF (0-3); Specific Gravity, Urine 1.015 (1.002-1.036); Squamous Epithelial 0-3 HPF (0-3); Urobilinogen Normal mg/dL (Less than 2); WBC/HPF 0-3 HPF (0-3); pH, Urine 5.5 (5.0-9.0)
[2023-02-07 13:14] LABS: Bacteria/HPF Rare-Few HPF (None Seen)
[2023-02-07 13:16] LABS: Urine Culture Reflex No No
[2023-02-07] MEDS ORDERED: Simethicone Chewable 80 MG TAB PO PRN (15:54)
[2023-02-07] MEDS ORDERED: HYDROcodone/Acetaminophen 5/325 mg Tablet PO PRN ×2 (17:27)
[2023-02-07] MEDS ORDERED: Ondansetron PF 4 MG/2 ML Vial IVP PRN (17:27)
[2023-02-07] MEDS ORDERED: Bisacodyl 5 MG TAB PO PRN (17:27)
[2023-02-07 17:39] VITALS: BMI 24.4
[2023-02-07] MEDS: Rosuvastatin 10 MG TAB PO SCH (21:19)
[2023-02-07] MEDS: Acetaminophen 325 MG TAB PO PRN (21:19)
[2023-02-07] MEDS: Amiodarone 200 MG TAB PO SCH (21:19)
[2023-02-07] MEDS: DorzolamidE/Timolol 2%/0.5% Ophth Soln 10 ml Bottle EA EYE SCH (21:26)
[2023-02-07] MEDS: Latanoprost 0.005% Ophth Soln 2.5 ml Bottle EA EYE SCH (21:26)
[2023-02-08] MEDS: dilTIAZem 125 MG in Sodium Chloride 0.9% 100 ML IVPB SCH ×2 (03:11→06:15)
[2023-02-08 04:53] LABS: #Monocytes 0.7 thou/uL (0.11-0.59); #Neutrophils 2.7 thou/uL (1.40-6.50); %Basophils 0.8 % (0.0-1.0); %Eosinophils 0.8 % (0.0-10.0); %Lymphocytes 29.9 % (21.0-51.0); %Monocytes 14.1 % (0.0-10.0); %Neutrophils 54.4 % (42.0-75.0); Hematocrit 31.1 % (36.0-47.0); Hemoglobin 9.9 g/dL (12.0-16.0); Mean Corpuscular HGB CONC 31.8 g/dL (32.0-36.0); Mean Platelet Volume 10.7 fL (7.4-10.4); Platelet Count 224 10x3/uL (130-400); RBC Distribution Width 13.2 % (11.5-14.5); Red Blood Cell (RBC) Count 3.09 mill/uL (4.20-5.40)
[2023-02-08 05:18] LABS: Anion Gap 11 mmol/L (10-20); BUN (Urea Nitrogen) 19 mg/dL (9.8-20.1); Calc. Creatinine Clearance 40 mL/min (70-130); Calcium 8.5 mg/dL (7.8-10.44); Carbon Dioxide 29 mmol/L (23-31); Chloride 106 mmol/L (98-107); Estimated GFR 59; Glucose 78 mg/dL (83-110); Sodium 143 mmol/L (136-145)
[2023-02-08 05:22] LABS: Mean Corpuscular Volume 100.6 fl (78.0-98.0); Potassium 2.5 mmol/L (3.5-5.1)
[2023-02-08] MEDS ORDERED: Electrolyte Replacement Protocol 1 EACH FS SCH (05:58)
[2023-02-08] MEDS: Acetaminophen 325 MG TAB PO PRN ×2 (08:45→23:48)
[2023-02-08] MEDS: Amiodarone 200 MG TAB PO SCH ×2 (08:46→20:29)
[2023-02-08] MEDS: Potassium Chloride 20 MEQ TAB PO SCH ×2 (08:46→12:08)
[2023-02-08] MEDS: DorzolamidE/Timolol 2%/0.5% Ophth Soln 10 ml Bottle EA EYE SCH ×2 (08:46→20:29)
[2023-02-08] MEDS ORDERED: Amiodarone 200 MG TAB PO SCH (09:00)
[2023-02-08] MEDS: Bacitracin Zinc Ointment 30 gm TUBE TOP SCH (13:19)
[2023-02-08] MEDS: Rosuvastatin 10 MG TAB PO SCH (20:29)
[2023-02-08] MEDS: Famotidine 20 MG TAB PO SCH (20:29)
[2023-02-08] MEDS: Latanoprost 0.005% Ophth Soln 2.5 ml Bottle EA EYE SCH (20:34)
[2023-02-09] MEDS: dilTIAZem 125 MG in Sodium Chloride 0.9% 100 ML IVPB SCH ×2 (04:14→14:49)
[2023-02-09] MEDS: Famotidine 20 MG TAB PO SCH (08:43)
[2023-02-09] MEDS: Amiodarone 200 MG TAB PO SCH ×2 (08:44→21:47)
[2023-02-09] MEDS: DorzolamidE/Timolol 2%/0.5% Ophth Soln 10 ml Bottle EA EYE SCH ×2 (08:44→21:46)
[2023-02-09] MEDS: Bacitracin Zinc Ointment 30 gm TUBE TOP SCH (08:44)
[2023-02-09 08:46] LABS: Anion Gap 12 mmol/L (10-20); BUN (Urea Nitrogen) 16 mg/dL (9.8-20.1); Calc. Creatinine Clearance 44 mL/min (70-130); Calcium 8.9 mg/dL (7.8-10.44); Carbon Dioxide 26 mmol/L (23-31); Chloride 108 mmol/L (98-107); Estimated GFR 67; Glucose 107 mg/dL (83-110); Potassium 3.4 mmol/L (3.5-5.1); Sodium 143 mmol/L (136-145)
[2023-02-09] MEDS ORDERED: Potassium Bicarbonate/Cit Ac 20 MEQ TAB PO SCH (09:00)
[2023-02-09] MEDS: Latanoprost 0.005% Ophth Soln 2.5 ml Bottle EA EYE SCH (21:46)
[2023-02-09] MEDS: Acetaminophen 325 MG TAB PO PRN (21:47)
[2023-02-09] MEDS: Rosuvastatin 10 MG TAB PO SCH (21:47)
[2023-02-10] MEDS: dilTIAZem 125 MG in Sodium Chloride 0.9% 100 ML IVPB SCH (04:19)
[2023-02-10 07:30] LABS: #Basophils 0.1 thou/uL (0.0-0.2); #Eosinphils 0.1 thou/uL (0.0-0.7); #Monocytes 0.7 thou/uL (0.11-0.59); %Basophils 0.8 % (0.0-1.0); %Eosinophils 0.8 % (0.0-10.0); %Lymphocytes 21.3 % (21.0-51.0); %Neutrophils 64.8 % (42.0-75.0); Hematocrit 36.4 % (36.0-47.0); Hemoglobin 11.2 g/dL (12.0-16.0); Mean Corpuscular HGB CONC 30.8 g/dL (32.0-36.0); Mean Corpuscular Hemoglobin 31.7 pg (27.0-31.0); Mean Corpuscular Volume 103.1 fl (78.0-98.0); Mean Platelet Volume 10.4 fL (7.4-10.4); Platelet Count 216 10x3/uL (130-400); RBC Distribution Width 13.2 % (11.5-14.5); Red Blood Cell (RBC) Count 3.53 mill/uL (4.20-5.40); White Blood Cell (WBC) Count 6.1 10x3/uL (4.8-10.8)
[2023-02-10 08:02] LABS: Anion Gap 13 mmol/L (10-20); BUN (Urea Nitrogen) 13 mg/dL (9.8-20.1); Calc. Creatinine Clearance 45 mL/min (70-130); Calcium 8.6 mg/dL (7.8-10.44); Carbon Dioxide 22 mmol/L (23-31); Chloride 108 mmol/L (98-107); Estimated GFR 67; Glucose 96 mg/dL (83-110); Magnesium 1.6 mg/dL (1.6-2.6); Phosphorus 2.4 mg/dL (2.3-4.7); Potassium 3.8 mmol/L (3.5-5.1); Sodium 139 mmol/L (136-145)
[2023-02-10] MEDS ORDERED: PROPOFOL 200 MG/20 ML VIAL ONE (08:04)
[2023-02-10] MEDS ORDERED: Lidocaine 1% PF 5 ML VIAL ONE (08:04)
[2023-02-10] MEDS ORDERED: Famotidine 20 MG TAB PO SCH (09:00)
[2023-02-10] MEDS ORDERED: Magnesium 2 GM/50 ML(in water) 2 GM in Premix Bag 1 BAG IVPB SCH (09:00)
[2023-02-10] MEDS: DorzolamidE/Timolol 2%/0.5% Ophth Soln 10 ml Bottle EA EYE SCH ×2 (09:23→20:55)
[2023-02-10] MEDS: Amiodarone 200 MG TAB PO SCH ×2 (09:24→20:56)
[2023-02-10] MEDS: Bacitracin Zinc Ointment 30 gm TUBE TOP SCH (09:24)
[2023-02-10] MEDS: Rosuvastatin 10 MG TAB PO SCH (20:57)
[2023-02-10] MEDS: Acetaminophen 325 MG TAB PO PRN (21:06)
[2023-02-10] MEDS: Latanoprost 0.005% Ophth Soln 2.5 ml Bottle EA EYE SCH (21:08)
[2023-02-11 04:49] LABS: #Basophils 0.1 thou/uL (0.0-0.2); #Eosinphils 0.1 thou/uL (0.0-0.7); #Monocytes 0.7 thou/uL (0.11-0.59); #Neutrophils 2.6 thou/uL (1.40-6.50); %Basophils 1.1 % (0.0-1.0); %Eosinophils 1.3 % (0.0-10.0); %Lymphocytes 28.9 % (21.0-51.0); %Monocytes 14.3 % (0.0-10.0); %Neutrophils 54.2 % (42.0-75.0); Hematocrit 34.4 % (36.0-47.0); Hemoglobin 11.1 g/dL (12.0-16.0); Mean Corpuscular HGB CONC 32.3 g/dL (32.0-36.0); Mean Corpuscular Hemoglobin 32.8 pg (27.0-31.0); Mean Corpuscular Volume 101.8 fl (78.0-98.0); Mean Platelet Volume 10.5 fL (7.4-10.4); Platelet Count 223 10x3/uL (130-400); RBC Distribution Width 13.1 % (11.5-14.5); Red Blood Cell (RBC) Count 3.38 mill/uL (4.20-5.40); White Blood Cell (WBC) Count 4.7 10x3/uL (4.8-10.8)
[2023-02-11 05:16] LABS: Anion Gap 10 mmol/L (10-20); BUN (Urea Nitrogen) 11 mg/dL (9.8-20.1); Calc. Creatinine Clearance 47 mL/min (70-130); Calcium 8.6 mg/dL (7.8-10.44); Carbon Dioxide 27 mmol/L (23-31); Chloride 107 mmol/L (98-107); Estimated GFR 70; Glucose 84 mg/dL (83-110); Magnesium 1.9 mg/dL (1.6-2.6); Potassium 3.6 mmol/L (3.5-5.1); Sodium 140 mmol/L (136-145)
[2023-02-11] MEDS ORDERED: Magnesium 2 GM/50 ML(in water) 2 GM in Premix Bag 1 BAG IVPB SCH (08:00)
[2023-02-11 08:59] VITALS: BP 149/69; TEMP 98.4
[2023-02-11] MEDS: Bacitracin Zinc Ointment 30 gm TUBE TOP SCH (09:03)
[2023-02-11] MEDS: DorzolamidE/Timolol 2%/0.5% Ophth Soln 10 ml Bottle EA EYE SCH (09:04)
[2023-02-11] MEDS: Amiodarone 200 MG TAB PO SCH (09:06)
== END 2023-02-11 12:40 | disposition home or self-care (01) | DRG 309 ==
LOC: ERS 11:37 → 2NO 15:35 → INTOOBSV 15:35 → OBSVTOIN 02-09 11:13
PROVIDERS: ADMIT Internal Medicine; ATTEND Family Medicine
PROC: 5A2204Z Restoration of Cardiac Rhythm, Single (ICD-10-PCS; principal; 2023-02-10)
PROC: B24BZZ4 Ultrasonography of Heart with Aorta, Transesophageal (ICD-10-PCS; 2023-02-10)
DX: I48.19 Other persistent atrial fibrillation (principal); C18.9 Malignant neoplasm of colon, unspecified; E78.5 Hyperlipidemia, unspecified; E11.9 Type 2 diabetes mellitus without complications; E87.6 Hypokalemia; I11.0 Hypertensive heart disease with heart failure; I50.9 Heart failure, unspecified; I48.92 Unspecified atrial flutter; D64.9 Anemia, unspecified; H40.9 Unspecified glaucoma; S41.112A Laceration without foreign body of left upper arm, initial encounter; Z86.718 Personal history of other venous thrombosis and embolism; Z90.49 Acquired absence of other specified parts of digestive tract; Z98.49 Cataract extraction status, unspecified eye; Z88.8 Allergy status to other drugs, medicaments and biological substances; Z79.899 Other long term (current) drug therapy; Z86.711 Personal history of pulmonary embolism; Z86.73 Personal history of transient ischemic attack (TIA), and cerebral infarction without residual deficits; I08.1 Rheumatic disorders of both mitral and tricuspid valves; Z98.84 Bariatric surgery status; Z95.5 Presence of coronary angioplasty implant and graft; E83.42 Hypomagnesemia
CPT/HCPCS: 36415; 36416; 71045; 71275; 80048; 80053; 81001; 83690; 83735; 83880; 84100; 84436; 84445; 84484; 85025; 85379; 92960; 93005; 93010; 93312; 96365; 96372; 96375; 96376; 97139; J1650; J1940; J2704; J3475; J3490

== ENCOUNTER 2023-03-25 10:15 | Outpatient (CLI) | payer MEDICARE | END 2023-03-25 10:16 | disposition home or self-care (01) | LOC: PET 10:15 | PROVIDERS: ATTEND Internal Medicine Hematology & Oncology | DX: C18.2 Malignant neoplasm of ascending colon (principal) | CPT/HCPCS: 78815; A9552 ==

== ENCOUNTER 2023-12-01 04:26 | Inpatient (IN) | payer MEDICARE ==
[2023-12-01] MEDS ORDERED: hydrALAZINE 20 MG/ML VIAL ONE (04:52)
[2023-12-01] MEDS ORDERED: Acetaminophen 500 MG TAB ONE (04:57)
[2023-12-01 05:03] LABS: #Basophils 0.04 10x3/uL (0.0-0.2); %Basophils 0.8 % (0.0-1.0); %Eosinophils 1.5 % (0.0-10.0); %Lymphocytes 21.6 % (21.0-51.0); %Monocytes 13.6 % (0.0-10.0); %Neutrophils 62.3 % (42.0-75.0); Hematocrit 37.9 % (36.0-47.0); Hemoglobin 12.3 g/dL (12.0-16.0); Mean Corpuscular HGB CONC 32.5 g/dL (32.0-36.0); Mean Corpuscular Hemoglobin 32.6 pg (27.0-31.0); Mean Corpuscular Volume 100.5 fL (78.0-98.0); Platelet Count 225 10x3/uL (130-400); RBC Distribution Width 14.1 % (11.5-14.5); Red Blood Cell (RBC) Count 3.77 mill/uL (4.20-5.40)
[2023-12-01 05:26] LABS: ALT (SGPT) 24 U/L (8-55); AST (SGOT) 51 U/L (5-34); Albumin 3.3 g/dL (3.4-4.8); Alkaline Phosphatase 105 U/L (40-110); Anion Gap 16 mmol/L (10-20); BUN (Urea Nitrogen) 15 mg/dL (9.8-20.1); Bilirubin, Total 0.5 mg/dL (0.2-1.2); Calc. Creatinine Clearance 0 mL/min (70-130); Calcium 9.1 mg/dL (7.8-10.44); Carbon Dioxide 22 mmol/L (23-31); Chloride 107 mmol/L (98-107); Estimated GFR 82; Globulin 3.9 g/dL (2.4-3.5); Glucose 114 mg/dL (83-110); Magnesium 1.8 mg/dL (1.6-2.6); Potassium 3.7 mmol/L (3.5-5.1); Protein, Total 7.2 g/dL (5.8-8.1); Sodium 141 mmol/L (136-145)
[2023-12-01 05:39] LABS: Troponin I 0.016 ng/mL (< 0.028)
[2023-12-01] MEDS ORDERED: niCARdipine 25 MG/10 ML SDV ONE (06:33)
[2023-12-01] MEDS ORDERED: Losartan 25 MG TAB ONE (08:10)
[2023-12-01] MEDS ORDERED: hydrALAZINE 25 MG TAB ONE ×2 (08:10→16:09)
[2023-12-01] MEDS ORDERED: Acetaminophen 650 MG Suppository PR PRN (09:01)
[2023-12-01] MEDS ORDERED: Ondansetron PF 4 MG/2 ML Vial IVP PRN (09:01)
[2023-12-01] MEDS ORDERED: Ondansetron ODT 4 MG TAB PO PRN (09:01)
[2023-12-01] MEDS ORDERED: Acetaminophen 325 MG TAB PO PRN (09:01)
[2023-12-01 09:23] LABS: Troponin I Less than 0.010 ng/mL (< 0.028)
[2023-12-01] MEDS ORDERED: Pantoprazole DR 40 MG TAB ONE (11:30)
[2023-12-01] MEDS ORDERED: Sodium Chloride 0.9% 100 ML ONE (11:31)
[2023-12-01] MEDS ORDERED: cefTRIAXone (ROCEPHIN) 2 GM VIAL ONE (11:31)
[2023-12-01] MEDS: cefTRIAXone\\ROCEPHIN 2 GM in Sodium Chloride 0.9% 100 ML IVPB SCH (11:41)
[2023-12-01] MEDS: Pantoprazole DR 40 MG TAB PO SCH (11:41)
[2023-12-01] MEDS ORDERED: HYDROcodone/Acetaminophen 10/325 mg Tablet ONE ×2 (12:11→17:43)
[2023-12-01] MEDS ORDERED: Azithromycin 500 MG VIAL ONE (12:11)
[2023-12-01] MEDS ORDERED: Iopamidol 370 76% 100 ML VIAL ONE (12:12)
[2023-12-01] MEDS: HYDROcodone/Acetaminophen 10/325 mg Tablet PO PRN (12:18)
[2023-12-01] MEDS: Azithromycin 500 MG in Sodium Chloride 0.9% 250 ML 250 ML IVPB SCH (12:19)
[2023-12-01] MEDS: hydrALAZINE 25 MG TAB PO SCH (16:10)
[2023-12-01 18:13] LABS: Troponin I Less than 0.010 ng/mL (< 0.028)
[2023-12-01] MEDS: Rosuvastatin 20 MG TAB PO SCH (21:53)
[2023-12-01] MEDS: Famotidine 20 MG TAB PO SCH (21:54)
[2023-12-01] MEDS: Gabapentin 100 MG CAP PO SCH (21:54)
[2023-12-02] MEDS: hydrALAZINE 20 MG/ML VIAL SLOW IVP SCH (00:21)
[2023-12-02 01:25] VITALS: BMI 22.6
[2023-12-02 04:00] LABS: #Basophils 0.04 10x3/uL (0.0-0.2); %Basophils 0.8 % (0.0-1.0); %Eosinophils 1.9 % (0.0-10.0); %Lymphocytes 23.1 % (21.0-51.0); %Monocytes 13.1 % (0.0-10.0); %Neutrophils 60.9 % (42.0-75.0); Hematocrit 34.8 % (36.0-47.0); Hemoglobin 11.1 g/dL (12.0-16.0); Mean Corpuscular HGB CONC 31.9 g/dL (32.0-36.0); Mean Corpuscular Hemoglobin 32.6 pg (27.0-31.0); Mean Corpuscular Volume 102.1 fL (78.0-98.0); Mean Platelet Volume 10.9 fL (7.4-10.4); Platelet Count 216 10x3/uL (130-400); Red Blood Cell (RBC) Count 3.41 mill/uL (4.20-5.40)
[2023-12-02 04:34] LABS: Anion Gap 11 mmol/L (10-20); BUN (Urea Nitrogen) 12 mg/dL (9.8-20.1); Calc. Creatinine Clearance 42 mL/min (70-130); Calcium 8.5 mg/dL (7.8-10.44); Carbon Dioxide 25 mmol/L (23-31); Cardiac Risk 2.8 (Less than 4.5); Chloride 106 mmol/L (98-107); Cholesterol 145 mg/dl (< 200 Desired); Estimated GFR 73; Glucose 97 mg/dL (83-110); HDL Cholesterol 51 mg/dL (>60 Neg Risk); LDL Cholesterol, Calculated 75 mg/dL; Sodium 139 mmol/L (136-145); Triglycerides 94 mg/dL (Less than 150)
[2023-12-02] MEDS: Losartan 25 MG TAB PO SCH (08:53)
[2023-12-02] MEDS: Potassium Chloride 20 MEQ TAB PO SCH (08:53)
[2023-12-02] MEDS: Pantoprazole DR 40 MG TAB PO SCH (08:54)
[2023-12-02] MEDS: Enoxaparin 40 MG (0.4 mL) SYRINGE SC SCH (08:54)
[2023-12-02] MEDS: Amiodarone 200 MG TAB PO SCH (08:54)
[2023-12-02] MEDS ORDERED: Losartan 25 MG TAB PO SCH (09:00)
[2023-12-02 10:52] VITALS: BMI 22.6
[2023-12-02] MEDS: Azithromycin 500 MG VIAL ONE (12:07)
[2023-12-03] MEDS: Losartan 25 MG TAB PO SCH (09:00)
[2023-12-03] MEDS: Hydrochlorothiazide 25 MG TAB PO SCH (13:25)
[2023-12-03] MEDS: Famotidine 20 MG TAB PO SCH (21:42)
[2023-12-04 04:31] VITALS: TEMP 98.2
[2023-12-04 09:26] VITALS: BP 160/81
[2023-12-04] MEDS: Cefdinir 300 MG CAP PO SCH (09:28)
[2023-12-04] MEDS: Hydrochlorothiazide 25 MG TAB PO SCH (09:29)
== END 2023-12-04 11:54 | disposition home or self-care (01) | DRG 304 ==
LOC: ERS 04:26 → ERHOLD 08:25 → 2SE 19:02 → OBSVTOIN 12-02 09:36
PROVIDERS: ADMIT Family Medicine; ATTEND Internal Medicine
DX: I16.0 Hypertensive urgency (principal); J18.9 Pneumonia, unspecified organism; I67.4 Hypertensive encephalopathy; E11.9 Type 2 diabetes mellitus without complications; I48.91 Unspecified atrial fibrillation; I10 Essential (primary) hypertension; E78.5 Hyperlipidemia, unspecified; Z88.8 Allergy status to other drugs, medicaments and biological substances; Z79.899 Other long term (current) drug therapy; Z90.49 Acquired absence of other specified parts of digestive tract; Z98.49 Cataract extraction status, unspecified eye
CPT/HCPCS: 36415; 36416; 70496; 70498; 70551; 71045; 80048; 80053; 80061; 83735; 83880; 84145; 84443; 84484; 85025; 93005; 93306; 94760; 96365; 96375; 96376; J0360; J0456; J0696; J1650; J3490; J7050; Q9967

== ENCOUNTER 2024-03-04 12:59 | Emergency (ER) | payer MEDICARE ==
[2024-03-04 13:31] LABS: #Basophils 0.04 10x3/uL (0.0-0.2); %Basophils 0.7 % (0.0-1.0); %Eosinophils 1.9 % (0.0-10.0); %Lymphocytes 11.6 % (21.0-51.0); %Monocytes 10.1 % (0.0-10.0); %Neutrophils 75.5 % (42.0-75.0); Hematocrit 35.4 % (36.0-47.0); Hemoglobin 11.3 g/dL (12.0-16.0); Mean Corpuscular HGB CONC 31.9 g/dL (32.0-36.0); Mean Corpuscular Hemoglobin 31.7 pg (27.0-31.0); Mean Corpuscular Volume 99.2 fL (78.0-98.0); Mean Platelet Volume 10.9 fL (7.4-10.4); Platelet Count 208 10x3/uL (130-400); RBC Distribution Width 14.3 % (11.5-14.5); Red Blood Cell (RBC) Count 3.57 mill/uL (4.20-5.40)
[2024-03-04 13:51] LABS: ALT (SGPT) 20 U/L (8-55); AST (SGOT) 27 U/L (5-34); Albumin 2.9 g/dL (3.4-4.8); Alkaline Phosphatase 91 U/L (40-110); Anion Gap 8 mmol/L (10-20); BUN (Urea Nitrogen) 19 mg/dL (9.8-20.1); Bilirubin, Total 0.6 mg/dL (0.2-1.2); Calc. Creatinine Clearance 0 mL/min (70-130); Calcium 8.8 mg/dL (7.8-10.44); Carbon Dioxide 27 mmol/L (23-31); Chloride 108 mmol/L (98-107); Estimated GFR 62; Globulin 3.5 g/dL (2.4-3.5); Glucose 147 mg/dL (83-110); Lipase 7 U/L (8-78); Protein, Total 6.4 g/dL (5.8-8.1); Sodium 140 mmol/L (136-145)
[2024-03-04 18:00] LABS: Bacteria/HPF None Seen HPF (None Seen); Bilirubin Negative (Negative); Blood, Urine Negative (Negative); CAUTI Indications for Culture Alt mental st,lethar; Clarity Clear (Clear); Glucose, Urine (Dipstick) Normal (Negative); Ketone, Urine Negative (Negative); Leukocyte Negative Leu/uL (Negative); Nitrite Negative (Negative); Protein, Urine (Dipstick) 20 mg/dL (Neg-Trace); RBC/HPF 0-3 HPF (0-3); Squamous Epithelial 0-3 HPF (0-3); Urobilinogen Normal mg/dL (Less than 2); WBC/HPF 0-3 HPF (0-3)
[2024-03-04 18:05] LABS: Specific Gravity, Urine 1.045 (1.002-1.036)
[2024-03-04 18:06] LABS: Urine Culture Reflex No No
== END 2024-03-04 18:20 | disposition home or self-care (01) ==
LOC: ERS 12:59
DX: K59.00 Constipation, unspecified (principal); E11.9 Type 2 diabetes mellitus without complications; I10 Essential (primary) hypertension; Z86.718 Personal history of other venous thrombosis and embolism; Z86.73 Personal history of transient ischemic attack (TIA), and cerebral infarction without residual deficits; Z95.1 Presence of aortocoronary bypass graft
CPT/HCPCS: 74177; 80053; 81001; 83605; 83690; 85025; 99283; J1642; 36415; Q9967

== ENCOUNTER 2024-03-24 10:35 | Inpatient (IN) | payer MEDICARE ==
[2024-03-24 11:43] LABS: #Basophils 0.05 10x3/uL (0.0-0.2); %Basophils 0.9 % (0.0-1.0); %Lymphocytes 14.7 % (21.0-51.0); %Monocytes 11.6 % (0.0-10.0); %Neutrophils 71.5 % (42.0-75.0); Hematocrit 38.5 % (36.0-47.0); Hemoglobin 12.1 g/dL (12.0-16.0); Mean Corpuscular HGB CONC 31.4 g/dL (32.0-36.0); Mean Corpuscular Hemoglobin 32.1 pg (27.0-31.0); Mean Corpuscular Volume 102.1 fL (78.0-98.0); Mean Platelet Volume 10.8 fL (7.4-10.4); Platelet Count 222 10x3/uL (130-400); RBC Distribution Width 14.2 % (11.5-14.5); Red Blood Cell (RBC) Count 3.77 mill/uL (4.20-5.40)
[2024-03-24 12:02] LABS: ALT (SGPT) 26 U/L (8-55); AST (SGOT) 37 U/L (5-34); Albumin 3.1 g/dL (3.4-4.8); Alkaline Phosphatase 146 U/L (40-110); Anion Gap 13 mmol/L (10-20); BUN (Urea Nitrogen) 14 mg/dL (9.8-20.1); Bilirubin, Total 0.5 mg/dL (0.2-1.2); Calc. Creatinine Clearance 0 mL/min (70-130); Calcium 8.4 mg/dL (7.8-10.44); Carbon Dioxide 26 mmol/L (23-31); Chloride 105 mmol/L (98-107); Estimated GFR 71; Globulin 3.3 g/dL (2.4-3.5); Glucose 142 mg/dL (83-110); Potassium 2.8 mmol/L (3.5-5.1); Protein, Total 6.4 g/dL (5.8-8.1); Sodium 141 mmol/L (136-145)
[2024-03-24 12:06] LABS: Troponin I 0.011 ng/mL (< 0.028)
[2024-03-24] MEDS ORDERED: Potassium Chloride 20 MEQ TAB ONE (12:32)
[2024-03-24] MEDS ORDERED: hydrALAZINE 10 MG TAB ONE ×2 (13:18→14:30)
[2024-03-24] MEDS ORDERED: hydrALAZINE 20 MG/ML VIAL ONE ×2 (16:29→18:01)
[2024-03-24] MEDS ORDERED: Acetaminophen 325 MG TAB PO PRN (18:16)
[2024-03-24] MEDS ORDERED: traMADol HCl 50 MG TAB PO PRN (18:16)
[2024-03-24] MEDS ORDERED: Ondansetron ODT 4 MG TAB PO PRN (18:16)
[2024-03-24] MEDS ORDERED: hydrALAZINE 20 MG/ML VIAL SLOW IVP PRN (18:20)
[2024-03-24] MEDS ORDERED: Enalaprilat Dihydrate 1.25 MG/ML VIAL SLOW IVP SCH (20:00)
[2024-03-24] MEDS ORDERED: Methylnaltrexone 12 MG (0.6 mL) VIAL SC PRN (21:39)
[2024-03-24] MEDS: hydrALAZINE 25 MG TAB PO SCH (22:29)
[2024-03-24] MEDS: Rosuvastatin 20 MG TAB PO SCH (22:29)
[2024-03-24] MEDS: Potassium Chloride 20 MEQ TAB PO SCH (22:29)
[2024-03-24] MEDS: Famotidine/PF 20 mg/2ml Vial SLOW IVP SCH (22:30)
[2024-03-24] MEDS: Amiodarone 200 MG TAB PO SCH (22:30)
[2024-03-24] MEDS: Famotidine 20 MG TAB PO SCH (22:30)
[2024-03-24 23:04] VITALS: BMI 24.3
[2024-03-25 05:24] LABS: #Basophils 0.03 10x3/uL (0.0-0.2); %Basophils 0.5 % (0.0-1.0); %Eosinophils 1.6 % (0.0-10.0); %Lymphocytes 16.5 % (21.0-51.0); %Monocytes 14.6 % (0.0-10.0); %Neutrophils 65.9 % (42.0-75.0); Hematocrit 31.5 % (36.0-47.0); Mean Corpuscular HGB CONC 31.7 g/dL (32.0-36.0); Mean Corpuscular Hemoglobin 32.1 pg (27.0-31.0); Mean Platelet Volume 11.1 fL (7.4-10.4); Platelet Count 179 10x3/uL (130-400); RBC Distribution Width 14.2 % (11.5-14.5); Red Blood Cell (RBC) Count 3.12 mill/uL (4.20-5.40)
[2024-03-25 05:39] LABS: ALT (SGPT) 21 U/L (8-55); AST (SGOT) 29 U/L (5-34); Albumin 2.7 g/dL (3.4-4.8); Alkaline Phosphatase 119 U/L (40-110); Anion Gap 13 mmol/L (10-20); BUN (Urea Nitrogen) 11 mg/dL (9.8-20.1); Bilirubin, Total 0.5 mg/dL (0.2-1.2); Calc. Creatinine Clearance 44 mL/min (70-130); Carbon Dioxide 25 mmol/L (23-31); Chloride 108 mmol/L (98-107); Estimated GFR 71; Globulin 2.6 g/dL (2.4-3.5); Glucose 99 mg/dL (83-110); Potassium 3.6 mmol/L (3.5-5.1); Protein, Total 5.3 g/dL (5.8-8.1); Sodium 142 mmol/L (136-145)
[2024-03-25] MEDS: HYDROcodone/Acetaminophen 7.5/325 mg Tablet PO PRN (09:00)
[2024-03-25] MEDS ORDERED: Losartan 25 MG TAB PO SCH (09:00)
[2024-03-25] MEDS: DorzolamidE/Timolol 2%/0.5% Ophth Soln 10 ml Bottle EA EYE SCH (09:02)
[2024-03-25] MEDS: Enoxaparin 40 MG (0.4 mL) SYRINGE SC SCH (09:02)
[2024-03-25] MEDS: Losartan 25 MG TAB PO SCH (09:03)
[2024-03-25] MEDS: Polyethylene Glycol 3350 17 GM Packet PO PRN (09:09)
[2024-03-25] MEDS: Docusate 100 MG CAP PO PRN (09:09)
[2024-03-25] MEDS ORDERED: Morphine 2 MG/ML VIAL SLOW IVP PRN (10:00)
[2024-03-25] MEDS ORDERED: Prochlorperazine Maleate 5 MG TAB PO PRN (10:38)
[2024-03-25] MEDS: Lactulose 20 GM (30 mL) UDCUP PO PRN (10:42)
[2024-03-25] MEDS ORDERED: Senokot 8.6 MG TAB PO PRN (14:57)
[2024-03-25] MEDS: Gabapentin 100 MG CAP PO SCH (20:13)
[2024-03-25] MEDS: Famotidine 20 MG TAB PO SCH (20:14)
[2024-03-25] MEDS: Latanoprost 0.005% Ophth Soln 2.5 ml Bottle EA EYE SCH (20:15)
[2024-03-25] MEDS: Polyethylene Glycol 3350 17 GM Packet PO SCH (20:16)
[2024-03-25] MEDS: Famotidine/PF 20 mg/2ml Vial SLOW IVP SCH (23:54)
[2024-03-26 04:38] LABS: #Basophils 0.04 10x3/uL (0.0-0.2); %Basophils 0.9 % (0.0-1.0); %Eosinophils 2.2 % (0.0-10.0); %Lymphocytes 27.9 % (21.0-51.0); %Monocytes 16.3 % (0.0-10.0); %Neutrophils 52.5 % (42.0-75.0); Hematocrit 32.7 % (36.0-47.0); Hemoglobin 10.2 g/dL (12.0-16.0); Mean Corpuscular HGB CONC 31.2 g/dL (32.0-36.0); Mean Corpuscular Hemoglobin 31.6 pg (27.0-31.0); Mean Corpuscular Volume 101.2 fL (78.0-98.0); Mean Platelet Volume 10.8 fL (7.4-10.4); Platelet Count 179 10x3/uL (130-400); RBC Distribution Width 14.1 % (11.5-14.5); Red Blood Cell (RBC) Count 3.23 mill/uL (4.20-5.40)
[2024-03-26 04:57] LABS: Anion Gap 11 mmol/L (10-20); BUN (Urea Nitrogen) 9 mg/dL (9.8-20.1); Calc. Creatinine Clearance 45 mL/min (70-130); Carbon Dioxide 25 mmol/L (23-31); Chloride 107 mmol/L (98-107); Estimated GFR 74; Glucose 87 mg/dL (83-110); Magnesium 1.9 mg/dL (1.6-2.6); Potassium 3.2 mmol/L (3.5-5.1); Sodium 140 mmol/L (136-145)
[2024-03-26] MEDS: Potassium Chloride 20 MEQ TAB PO SCH (09:13)
[2024-03-26] MEDS: Naloxegol 12.5 MG TAB PO SCH (09:13)
[2024-03-26] MEDS: Hydrochlorothiazide 25 MG TAB PO SCH (11:42)
[2024-03-26] MEDS: Ondansetron PF 4 MG/2 ML Vial IVP PRN (11:42)
[2024-03-26] MEDS: Prochlorperazine Maleate 5 MG TAB PO PRN (21:22)
[2024-03-27 05:04] LABS: Hematocrit 33.3 % (36.0-47.0); Hemoglobin 10.4 g/dL (12.0-16.0); Mean Corpuscular HGB CONC 31.2 g/dL (32.0-36.0); Mean Corpuscular Hemoglobin 32.4 pg (27.0-31.0); Mean Corpuscular Volume 103.7 fL (78.0-98.0); Mean Platelet Volume 10.7 fL (7.4-10.4); Platelet Count 184 10x3/uL (130-400); Red Blood Cell (RBC) Count 3.21 mill/uL (4.20-5.40)
[2024-03-27 05:25] LABS: Anion Gap 12 mmol/L (10-20); BUN (Urea Nitrogen) 12 mg/dL (9.8-20.1); Calc. Creatinine Clearance 41 mL/min (70-130); Calcium 8.1 mg/dL (7.8-10.44); Carbon Dioxide 24 mmol/L (23-31); Chloride 108 mmol/L (98-107); Estimated GFR 65; Glucose 94 mg/dL (83-110); Magnesium 1.9 mg/dL (1.6-2.6); Potassium 3.6 mmol/L (3.5-5.1); Sodium 140 mmol/L (136-145)
[2024-03-27] MEDS: Hydrochlorothiazide 25 MG TAB PO SCH (08:25)
[2024-03-27] MEDS: FLU (Fluad Triv) TS24-25 (65UP)/MF59C/PF 45 MCG/0.5 ML Syringe IM ONE (08:30)
[2024-03-27 11:34] VITALS: BP 165/70; TEMP 98.5
== END 2024-03-27 13:27 | disposition home or self-care (01) | DRG 305 ==
LOC: ERS 10:35 → 2NO 18:05 → OBSVTOIN 03-25 10:01
PROVIDERS: ADMIT Internal Medicine; ATTEND Internal Medicine
DX: I10 Essential (primary) hypertension (principal); C78.7 Secondary malignant neoplasm of liver and intrahepatic bile duct; I16.0 Hypertensive urgency; I95.1 Orthostatic hypotension; G89.29 Other chronic pain; M54.9 Dorsalgia, unspecified; E11.9 Type 2 diabetes mellitus without complications; I48.91 Unspecified atrial fibrillation; E87.6 Hypokalemia; K21.9 Gastro-esophageal reflux disease without esophagitis; K59.03 Drug induced constipation; H40.9 Unspecified glaucoma; Z90.49 Acquired absence of other specified parts of digestive tract; Z79.899 Other long term (current) drug therapy; Z98.890 Other specified postprocedural states; Z88.8 Allergy status to other drugs, medicaments and biological substances
CPT/HCPCS: 36415; 71045; 74018; 74176; 80048; 80053; 83735; 83880; 84484; 85025; 85027; 90653; 93005; 96372; 96374; G0378; J0360; J1650; J2405; Q0164

== ENCOUNTER 2024-06-17 07:23 | Outpatient (CLI) | payer MEDICARE ==
[2024-06-17] MEDS ORDERED: Iopamidol 370 76% 100 ML VIAL ONE (15:11)
== END 2024-06-17 07:24 | disposition home or self-care (01) ==
LOC: CT 07:23
PROVIDERS: ATTEND Internal Medicine Hematology & Oncology
DX: C18.2 Malignant neoplasm of ascending colon (principal); D50.8 Other iron deficiency anemias; N18.9 Chronic kidney disease, unspecified; D63.1 Anemia in chronic kidney disease; C78.7 Secondary malignant neoplasm of liver and intrahepatic bile duct; C78.6 Secondary malignant neoplasm of retroperitoneum and peritoneum
CPT/HCPCS: 71260; 74177; Q9967

== ENCOUNTER 2024-07-11 09:26 | Emergency (ER) | payer MEDICARE ==
[2024-07-11] MEDS ORDERED: Lidocaine 4% Patch ONE (09:48)
[2024-07-11] MEDS ORDERED: Boostrix 0.5 ML (Tdap) VIAL (>/=7 yrs of age) ONE (09:48)
[2024-07-11] MEDS ORDERED: Acetaminophen 325 MG TAB ONE (09:48)
== END 2024-07-11 12:51 | disposition home or self-care (01) ==
LOC: ERS 09:26
DX: S20.212A Contusion of left front wall of thorax, initial encounter (principal); J11.1 Influenza due to unidentified influenza virus with other respiratory manifestations; C18.9 Malignant neoplasm of colon, unspecified; E11.9 Type 2 diabetes mellitus without complications; I10 Essential (primary) hypertension; Z79.899 Other long term (current) drug therapy; W06.XXXA Fall from bed, initial encounter
CPT/HCPCS: 72170; 87428; 90471; 90715

== ENCOUNTER 2024-07-12 08:08 | Inpatient (IN) | payer MEDICARE ==
[2024-07-12 09:24] LABS: #Basophils Less than 0.03 10x3/uL (0.0-0.2); #Eosinophils Less than 0.03 10x3/uL (0.0-0.7); %Basophils 0.4 % (0.0-1.0); %Neutrophils 73.2 % (42.0-75.0); Hematocrit 29.8 % (36.0-47.0); Hemoglobin 9.4 g/dL (12.0-16.0); Mean Corpuscular HGB CONC 31.5 g/dL (32.0-36.0); Mean Corpuscular Hemoglobin 31.4 pg (27.0-31.0); Mean Corpuscular Volume 99.7 fL (78.0-98.0); Mean Platelet Volume 10.2 fL (7.4-10.4); Platelet Count 217 10x3/uL (130-400); RBC Distribution Width 14.7 % (11.5-14.5); Red Blood Cell (RBC) Count 2.99 mill/uL (4.20-5.40)
[2024-07-12] MEDS ORDERED: Acetaminophen 500 MG TAB ONE (09:53)
[2024-07-12] MEDS ORDERED: HYDROmorphone 0.5 MG/0.5 ML SYRINGE ONE (09:53)
[2024-07-12] MEDS ORDERED: Ketorolac Tromethamine 30 MG (1 mL) VIAL ONE (09:53)
[2024-07-12 09:54] LABS: ALT (SGPT) 65 U/L (Less than 34); AST (SGOT) 163 U/L (11-34); Albumin 2.7 g/dL (3.1-4.5); Alkaline Phosphatase 101 U/L (40-110); Anion Gap 14 mmol/L (10-20); BUN (Urea Nitrogen) 16 mg/dL (9.8-20.1); Bilirubin, Total 0.5 mg/dL (0.3-1.2); Calc. Creatinine Clearance 0 mL/min (70-130); Calcium 8.4 mg/dL (7.8-10.44); Carbon Dioxide 19 mmol/L (23-31); Chloride 107 mmol/L (98-107); Estimated GFR 60; Globulin 3.9 g/dL (2.4-3.5); Glucose 115 mg/dL (83-110); Potassium 4.8 mmol/L (3.5-5.1); Protein, Total 6.6 g/dL (5.8-8.1); Sodium 135 mmol/L (136-145)
[2024-07-12 10:53] LABS: Troponin I 0.064 ng/mL (< 0.028)
[2024-07-12] MEDS ORDERED: Aspirin Chewable 81 MG TAB ONE (11:20)
[2024-07-12] MEDS ORDERED: Iopamidol-370 76% 500 ML MDV (1 ML CHARGE) ONE (11:38)
[2024-07-12] MEDS ORDERED: Morphine 4 MG/ML VIAL ONE (12:14)
[2024-07-12] MEDS ORDERED: Acetaminophen 325 MG TAB PO PRN ×2 (13:45→14:55)
[2024-07-12] MEDS ORDERED: Ondansetron PF 4 MG/2 ML Vial IVP PRN ×2 (13:45→14:55)
[2024-07-12] MEDS ORDERED: Ondansetron ODT 4 MG TAB SL PRN (13:45)
[2024-07-12] MEDS ORDERED: Ipratropium/Albuterol 3 ML NEB NEB PRN (14:54)
[2024-07-12] MEDS ORDERED: Ondansetron ODT 4 MG TAB PO PRN (14:55)
[2024-07-12] MEDS ORDERED: Senokot S 8.6-50 MG TAB PO PRN (14:55)
[2024-07-12] MEDS ORDERED: Acetaminophen 650 MG Suppository PR PRN (14:55)
[2024-07-12] MEDS ORDERED: Calcium Carbonate 500 MG ChewTAB PO PRN (14:55)
[2024-07-12] MEDS ORDERED: Glucagon 1 MG/ML KIT IM PRN (15:07)
[2024-07-12] MEDS ORDERED: Dextrose 50% Abboject 50 ML SYRINGE SLOW IVP PRN (15:07)
[2024-07-12] MEDS ORDERED: Dextrose 5% in Water 1,000 ML IV PRN (15:07)
[2024-07-12] MEDS ORDERED: Insulin Lispro 100 UNIT/ML 10 ML VIAL SC PRN ×2 (15:07)
[2024-07-12 15:12] LABS: Troponin I 0.054 ng/mL (< 0.028)
[2024-07-12 17:30] VITALS: BMI 22.4
[2024-07-12] MEDS: Ipratropium/Albuterol 3 ML NEB NEB SCH (19:16)
[2024-07-12] MEDS: Famotidine 20 MG TAB PO SCH (20:40)
[2024-07-12] MEDS: Gabapentin 100 MG CAP PO SCH (20:41)
[2024-07-12] MEDS: Oseltamivir 75 MG CAP PO SCH (20:41)
[2024-07-12] MEDS: HYDROcodone/Acetaminophen 5/325 mg Tablet PO PRN (20:41)
[2024-07-13 04:28] LABS: #Basophils Less than 0.03 10x3/uL (0.0-0.2); #Eosinophils Less than 0.03 10x3/uL (0.0-0.7); %Basophils 0.3 % (0.0-1.0); %Eosinophils 0.3 % (0.0-10.0); %Lymphocytes 33.3 % (21.0-51.0); %Monocytes 18.1 % (0.0-10.0); %Neutrophils 47.3 % (42.0-75.0); Hematocrit 26.7 % (36.0-47.0); Hemoglobin 8.4 g/dL (12.0-16.0); Mean Corpuscular HGB CONC 31.5 g/dL (32.0-36.0); Mean Corpuscular Hemoglobin 30.8 pg (27.0-31.0); Mean Corpuscular Volume 97.8 fL (78.0-98.0); Mean Platelet Volume 10.7 fL (7.4-10.4); Platelet Count 221 10x3/uL (130-400); RBC Distribution Width 14.6 % (11.5-14.5); Red Blood Cell (RBC) Count 2.73 mill/uL (4.20-5.40)
[2024-07-13 04:39] LABS: ALT (SGPT) 64 U/L (Less than 34); AST (SGOT) 156 U/L (11-34); Albumin 2.4 g/dL (3.1-4.5); Alkaline Phosphatase 94 U/L (40-110); Anion Gap 12 mmol/L (10-20); BUN (Urea Nitrogen) 19 mg/dL (9.8-20.1); Bilirubin, Total 0.3 mg/dL (0.3-1.2); Calc. Creatinine Clearance 28 mL/min (70-130); Carbon Dioxide 21 mmol/L (23-31); Chloride 108 mmol/L (98-107); Estimated GFR 45; Globulin 3.1 g/dL (2.4-3.5); Glucose 81 mg/dL (83-110); Potassium 3.8 mmol/L (3.5-5.1); Protein, Total 5.5 g/dL (5.8-8.1); Sodium 137 mmol/L (136-145)
[2024-07-13] MEDS: Lidocaine 4% Patch TD SCH (08:22)
[2024-07-13] MEDS: Enoxaparin 40 MG (0.4 mL) SYRINGE SC SCH (08:23)
[2024-07-13] MEDS: Morphine 2 MG/ML VIAL SLOW IVP PRN (08:23)
[2024-07-13] MEDS ORDERED: Polyethylene Glycol 3350 17 GM Packet PO PRN (09:00)
[2024-07-13 10:50] VITALS: BMI 22.4
[2024-07-13] MEDS: HYDROcodone/Acetaminophen 10/325 mg Tablet PO PRN (13:43)
[2024-07-13] MEDS: Guaifenesin DM 100-10/5 ML UDCUP PO PRN (20:30)
[2024-07-14 09:20] LABS: Hematocrit 31.1 % (36.0-47.0); Hemoglobin 9.7 g/dL (12.0-16.0); Mean Corpuscular HGB CONC 31.2 g/dL (32.0-36.0); Mean Corpuscular Hemoglobin 30.9 pg (27.0-31.0); Mean Platelet Volume 10.4 fL (7.4-10.4); Platelet Count 262 10x3/uL (130-400); RBC Distribution Width 14.6 % (11.5-14.5); Red Blood Cell (RBC) Count 3.14 mill/uL (4.20-5.40)
[2024-07-14] MEDS: Famotidine 20 MG TAB PO SCH (09:22)
[2024-07-14] MEDS: Enoxaparin 30 MG (0.3 mL) SYRINGE SC SCH (09:22)
[2024-07-14] MEDS: Oseltamivir 6 MG/ML ORAL SUSP PO SCH (09:23)
[2024-07-14] MEDS: HYDROcodone/Acetaminophen 10/325 mg Tablet PO PRN (09:25)
[2024-07-14 09:39] LABS: Anion Gap 13 mmol/L (10-20); BUN (Urea Nitrogen) 14 mg/dL (9.8-20.1); Calc. Creatinine Clearance 38 mL/min (70-130); Calcium 8.1 mg/dL (7.8-10.44); Carbon Dioxide 22 mmol/L (23-31); Chloride 108 mmol/L (98-107); Estimated GFR 65; Glucose 92 mg/dL (83-110); Potassium 3.7 mmol/L (3.5-5.1); Sodium 139 mmol/L (136-145)
[2024-07-14 11:07] LABS: Anisocytosis MODERATE=16-30 cells HPF (0-5); Band 11 % (5-11); Burr Cells SLIGHT = 2-5 cells HPF (0-1); Elliptocytes SLIGHT = 2-5 cells HPF (0-1); Large Platelets 11.4 % (0-5); Lymphocytes 26 % (21-51); Macrocytosis SLIGHT = 6-15 cells HPF (0-5); Monocytes 20 % (0-10); Neutrophil 39 % (42-75); Ovalocytes SLIGHT = 2-5 cells HPF (0-1); Platelet Adequacy Comment Platelets Normal; Polychromasia SLIGHT = 2-3 cells HPF (0-2); Reactive Lymphocytes 2 % (0-10); Smudge Cells 18.1 %
[2024-07-14] MEDS: tiZANidine HCl 4 MG TAB PO SCH ×2 (12:24→21:56)
[2024-07-14] MEDS ORDERED: tiZANidine HCl 4 MG TAB PO SCH (21:00)
[2024-07-14] MEDS: Latanoprost 0.005% Ophth Soln 2.5 ml Bottle EA EYE SCH (21:57)
[2024-07-14] MEDS: Melatonin 3 MG TAB PO SCH (21:57)
[2024-07-14] MEDS: Amiodarone 200 MG TAB PO SCH (21:58)
[2024-07-15 05:11] LABS: Anion Gap 14 mmol/L (10-20); BUN (Urea Nitrogen) 19 mg/dL (9.8-20.1); Calc. Creatinine Clearance 36 mL/min (70-130); Carbon Dioxide 20 mmol/L (23-31); Chloride 109 mmol/L (98-107); Estimated GFR 61; Glucose 123 mg/dL (83-110); Potassium 4.1 mmol/L (3.5-5.1); Sodium 139 mmol/L (136-145)
[2024-07-15 05:15] LABS: Hematocrit 27.1 % (36.0-47.0); Hemoglobin 8.4 g/dL (12.0-16.0); Mean Corpuscular Hemoglobin 30.8 pg (27.0-31.0); Mean Corpuscular Volume 99.3 fL (78.0-98.0); Mean Platelet Volume 10.4 fL (7.4-10.4); Platelet Count 270 10x3/uL (130-400); RBC Distribution Width 14.5 % (11.5-14.5); Red Blood Cell (RBC) Count 2.73 mill/uL (4.20-5.40)
[2024-07-15 06:00] LABS: Anisocytosis SLIGHT = 6-15 cells HPF (0-5); Band 26 % (5-11); Dohle Bodies SLIGHT; Hypochromia SLIGHT = 6-15 cells HPF (0-5); Large Platelets 12.5 % (0-5); Lymphocytes 13 % (21-51); Monocytes 21 % (0-10); Neutrophil 38 % (42-75); Ovalocytes SLIGHT = 2-5 cells HPF (0-1); Platelet Adequacy Comment Platelets Normal; Polychromasia SLIGHT = 2-3 cells HPF (0-2); Reactive Lymphocytes 3 % (0-10); Smudge Cells 27.3 %; Vacuoles SLIGHT
[2024-07-15] MEDS: Enoxaparin 40 MG (0.4 mL) SYRINGE SC SCH (08:43)
[2024-07-15] MEDS: Losartan 25 MG TAB PO SCH (08:43)
[2024-07-15] MEDS ORDERED: Ipratropium/Albuterol 3 ML NEB NEB PRN (15:06)
[2024-07-15 16:02] VITALS: BP 129/54; TEMP 98
== END 2024-07-15 17:45 | disposition swing bed (61) | DRG 436 ==
LOC: ERS 08:08 → 2NO 13:28 → SURG A 07-13 22:43
PROVIDERS: ADMIT Internal Medicine; ATTEND Internal Medicine
DX: C78.7 Secondary malignant neoplasm of liver and intrahepatic bile duct (principal); I5A Non-ischemic myocardial injury (non-traumatic); S22.42XD Multiple fractures of ribs, left side, subsequent encounter for fracture with routine healing; I10 Essential (primary) hypertension; E78.5 Hyperlipidemia, unspecified; J11.1 Influenza due to unidentified influenza virus with other respiratory manifestations; Z66 Do not resuscitate; R53.81 Other malaise; I48.91 Unspecified atrial fibrillation; E11.9 Type 2 diabetes mellitus without complications; Z92.21 Personal history of antineoplastic chemotherapy; Z88.8 Allergy status to other drugs, medicaments and biological substances; Z90.49 Acquired absence of other specified parts of digestive tract; Z98.890 Other specified postprocedural states; W19.XXXD Unspecified fall, subsequent encounter; D63.8 Anemia in other chronic diseases classified elsewhere
CPT/HCPCS: 36415; 36416; 71046; 71275; 80048; 80053; 83880; 84484; 85025; 93005; 94640; 94760; 96374; 96375; J1171; J1650; J1885; J2270; J2272; J7620; Q9967

== ENCOUNTER 2024-12-23 19:55 | Inpatient (IN) | payer MEDICARE ==
[2024-12-23 21:27] VITALS: BMI 23.3
[2024-12-23] MEDS ORDERED: Acetaminophen 325 MG TAB PO PRN (22:17)
[2024-12-23] MEDS ORDERED: Ondansetron PF 4 MG/2 ML Vial IVP PRN (22:17)
[2024-12-23] MEDS ORDERED: Dextrose 50% Abboject 50 ML SYRINGE SLOW IVP PRN (22:20)
[2024-12-23] MEDS ORDERED: Glucagon 1 MG/ML KIT IM PRN (22:20)
[2024-12-23] MEDS: HYDROcodone/Acetaminophen 10/325 mg Tablet PO PRN (22:41)
[2024-12-23 22:55] LABS: Anion Gap 13 mmol/L (10-20); BUN (Urea Nitrogen) 30 mg/dL (9.8-20.1); Calc. Creatinine Clearance 24 mL/min (70-130); Calcium 8.7 mg/dL (7.8-10.44); Carbon Dioxide 17 mmol/L (23-31); Chloride 115 mmol/L (98-107); Glucose 183 mg/dL (83-110); Potassium 5.2 mmol/L (3.5-5.1); Sodium 140 mmol/L (136-145)
[2024-12-23 23:29] LABS: Actual Bicarbonate (HCO3v) 18.0 mEq/L (22-28); Base Excess -8.8 mEq/L (-2.0 to +3.0); Calcium, Ionized (venous) 1.21 mmol/L (1.16-1.32); Chloride (VBG) 110 mmol/L (98-106); Hematocrit-VBG 36 % (36.0-47.0); Hemoglobin (Hb) 12.1 g/dL (11.7-16.1); Potassium (VBG) 5.39 mmol/L (3.70-5.30); Sodium 140 mmol/L (133-146)
[2024-12-24] MEDS: Melatonin 3 MG TAB PO PRN (00:57)
[2024-12-24] MEDS: Sodium Bicarb 50 MEQ/50 ML Abboject 8.4% SYRINGE IVP SCH (00:58)
[2024-12-24 05:30] LABS: #Basophils 0.04 10x3/uL (0.0-0.2); #Eosinophils 0.04 10x3/uL (0.0-0.7); #Monocytes 0.72 10x3/uL (0.11-0.59); #Neutrophils 4.03 10x3/uL (1.40-6.50); %Basophils 0.6 % (0.0-1.0); %Eosinophils 0.6 % (0.0-10.0); %Lymphocytes 22.1 % (21.0-51.0); %Monocytes 11.5 % (0.0-10.0); %Neutrophils 64.7 % (42.0-75.0); Hematocrit 32.1 % (36.0-47.0); Hemoglobin 10.3 g/dL (12.0-16.0); Mean Corpuscular Hemoglobin 37.2 pg (27.0-31.0); Mean Corpuscular Volume 115.9 fL (78.0-98.0); Platelet Count 200 10x3/uL (130-400); Red Blood Cell (RBC) Count 2.77 mill/uL (4.20-5.40); White Blood Cell (WBC) Count 6.24 10x3/uL (4.8-10.8)
[2024-12-24 05:50] LABS: Anion Gap 15 mmol/L (10-20); BUN (Urea Nitrogen) 28 mg/dL (9.8-20.1); Calc. Creatinine Clearance 26 mL/min (70-130); Calcium 8.2 mg/dL (7.8-10.44); Carbon Dioxide 18 mmol/L (23-31); Chloride 114 mmol/L (98-107); Glucose 99 mg/dL (83-110); Potassium 4.7 mmol/L (3.5-5.1); Sodium 142 mmol/L (136-145)
[2024-12-24 06:00] LABS: Anisocytosis SLIGHT = 6-15 cells HPF (0-5); Macrocytosis MODERATE=16-30 cells HPF (0-5); Platelet Adequacy Comment Platelets Normal; Polychromasia SLIGHT = 2-3 cells HPF (0-2)
[2024-12-24] MEDS ORDERED: Non-Formulary Item 1 EACH (Lactulose 10 Gm/15ml Oral Sol 10 GM/15 ML Ml) PO PRN (06:42)
[2024-12-24] MEDS ORDERED: Lactulose 20 GM (30 mL) UDCUP PO PRN (06:53)
[2024-12-24] MEDS ORDERED: Furosemide 20 MG (2 mL) VIAL SLOW IVP SCH (09:00)
[2024-12-24] MEDS: Sodium Bicarbonate Tab 325 MG TAB PO SCH (09:33)
[2024-12-24] MEDS: Apixaban 2.5 MG TAB PO SCH (09:34)
[2024-12-24] MEDS: Senokot S 8.6-50 MG TAB PO SCH (09:34)
[2024-12-24] MEDS: Megestrol Acetate 800 MG/20 ML UDCUP PO SCH (09:35)
[2024-12-24] MEDS: Furosemide 20 MG (2 mL) VIAL SLOW IVP SCH (09:35)
[2024-12-24] MEDS: Amiodarone 200 MG TAB PO SCH (09:37)
[2024-12-24 11:43] VITALS: BMI 22.6
[2024-12-24] MEDS: DorzolamidE/Timolol 2%/0.5% Ophth Soln 10 ml Bottle EA EYE SCH (15:01)
[2024-12-24] MEDS: cefTRIAXone\\ROCEPHIN 1 GM in Sodium Chloride 0.9% 100 ML IVPB SCH (18:02)
[2024-12-24] MEDS: Rosuvastatin 10 MG TAB PO SCH (20:16)
[2024-12-24] MEDS: Gabapentin 100 MG CAP PO SCH (20:16)
[2024-12-24] MEDS: Famotidine 20 MG TAB PO SCH (20:17)
[2024-12-25 05:14] LABS: Anion Gap 10 mmol/L (10-20); BUN (Urea Nitrogen) 30 mg/dL (9.8-20.1); Calc. Creatinine Clearance 26 mL/min (70-130); Calcium 7.8 mg/dL (7.8-10.44); Carbon Dioxide 20 mmol/L (23-31); Chloride 114 mmol/L (98-107); Glucose 98 mg/dL (83-110); Potassium 4.3 mmol/L (3.5-5.1); Sodium 140 mmol/L (136-145)
[2024-12-25 05:16] LABS: #Basophils 0.04 10x3/uL (0.0-0.2); #Eosinophils 0.05 10x3/uL (0.0-0.7); #Monocytes 0.55 10x3/uL (0.11-0.59); #Neutrophils 2.91 10x3/uL (1.40-6.50); %Basophils 0.8 % (0.0-1.0); %Eosinophils 1.1 % (0.0-10.0); %Lymphocytes 24.8 % (21.0-51.0); %Monocytes 11.6 % (0.0-10.0); %Neutrophils 61.1 % (42.0-75.0); Hematocrit 28.2 % (36.0-47.0); Hemoglobin 8.9 g/dL (12.0-16.0); Mean Corpuscular Hemoglobin 35.5 pg (27.0-31.0); Mean Corpuscular Volume 112.4 fL (78.0-98.0); Platelet Count 194 10x3/uL (130-400); Red Blood Cell (RBC) Count 2.51 mill/uL (4.20-5.40); White Blood Cell (WBC) Count 4.76 10x3/uL (4.8-10.8)
[2024-12-25] MEDS: Multivitamin W/ Minerals 1 TAB PO SCH (08:25)
[2024-12-25 08:31] VITALS: BP 113/76; TEMP 98.4
== END 2024-12-25 10:54 | disposition home or self-care (01) | DRG 689 ==
LOC: T4-B 19:56
PROVIDERS: ADMIT Hospitalist; ATTEND Internal Medicine
DX: N39.0 Urinary tract infection, site not specified (principal); I50.33 Acute on chronic diastolic (congestive) heart failure; J90 Pleural effusion, not elsewhere classified; I13.0 Hypertensive heart and chronic kidney disease with heart failure and stage 1 through stage 4 chronic kidney disease, or unspecified chronic kidney disease; E87.20 Acidosis, unspecified; N17.9 Acute kidney failure, unspecified; E11.22 Type 2 diabetes mellitus with diabetic chronic kidney disease; N18.30 Chronic kidney disease, stage 3 unspecified; K59.09 Other constipation; I48.91 Unspecified atrial fibrillation; B96.20 Unspecified Escherichia coli [E. coli] as the cause of diseases classified elsewhere; D63.1 Anemia in chronic kidney disease; G89.29 Other chronic pain; Z88.8 Allergy status to other drugs, medicaments and biological substances; Z86.711 Personal history of pulmonary embolism; Z86.718 Personal history of other venous thrombosis and embolism; Z79.01 Long term (current) use of anticoagulants; Z92.21 Personal history of antineoplastic chemotherapy; Z92.3 Personal history of irradiation; Z85.118 Personal history of other malignant neoplasm of bronchus and lung; Z85.038 Personal history of other malignant neoplasm of large intestine; Z98.890 Other specified postprocedural states; Z98.84 Bariatric surgery status
CPT/HCPCS: 36415; 36416; 80048; 82805; 83605; 83880; 85025; A4217; J0696; J1940

== ENCOUNTER 2025-02-14 15:32 | Emergency (ER) | payer MEDICARE ==
[2025-02-14 17:03] LABS: #Basophils 0.04 10x3/uL (0.0-0.2); #Eosinophils Less than 0.03 10x3/uL (0.0-0.7); #Monocytes 1.12 10x3/uL (0.11-0.59); #Neutrophils 9.70 10x3/uL (1.40-6.50); %Basophils 0.3 % (0.0-1.0); %Eosinophils 0.2 % (0.0-10.0); %Lymphocytes 11.5 % (21.0-51.0); %Monocytes 9.0 % (0.0-10.0); %Neutrophils 78.3 % (42.0-75.0); Hematocrit 34.7 % (36.0-47.0); Hemoglobin 10.7 g/dL (12.0-16.0); Mean Corpuscular Hemoglobin 31.8 pg (27.0-31.0); Mean Corpuscular Volume 103.3 fL (78.0-98.0); Platelet Count 498 10x3/uL (130-400); Red Blood Cell (RBC) Count 3.36 mill/uL (4.20-5.40); White Blood Cell (WBC) Count 12.39 10x3/uL (4.8-10.8)
[2025-02-14 17:20] LABS: ALT (SGPT) Less than 7 U/L (Less than 34); AST (SGOT) 25 U/L (11-34); Albumin 2.1 g/dL (3.1-4.5); Alkaline Phosphatase 138 U/L (40-110); Anion Gap 16 mmol/L (10-20); BUN (Urea Nitrogen) 22 mg/dL (9.8-20.1); Bilirubin, Total 0.4 mg/dL (0.3-1.2); Calc. Creatinine Clearance 0 mL/min (70-130); Calcium 8.6 mg/dL (7.8-10.44); Carbon Dioxide 21 mmol/L (23-31); Chloride 107 mmol/L (98-107); Globulin 4.6 g/dL (2.4-3.5); Glucose 151 mg/dL (83-110); Lipase 9 U/L (8-78); Potassium 3.5 mmol/L (3.5-5.1); Sodium 140 mmol/L (136-145)
== END 2025-02-14 22:09 | disposition home or self-care (01) ==
LOC: ERS 15:32
DX: M80.08XA Age-related osteoporosis with current pathological fracture, vertebra(e), initial encounter for fracture (principal); E11.9 Type 2 diabetes mellitus without complications; I11.0 Hypertensive heart disease with heart failure; I50.9 Heart failure, unspecified
CPT/HCPCS: 72128; 74177; 80053; 83690; 85025; 96374; 99283; J3010; Q0162; Q9967; 36415